=== PATIENT | male | born 1955 | race Caucasian/White ===

== ENCOUNTER 2021-12-06 10:51 | Inpatient (IN) | payer OTHER ==
[~2021-12-06] VITALS: Ht 165.1 cm; Wt 83.2 kg
[2021-12-06 11:18] LABS: BASOPHILS ABSOLUTE AUTO 0.03 K/mm3 (0.00-0.23); BASOPHILS PERCENT AUTO 0 % (0-2); EOSINOPHILS ABSOLUTE AUTO 0.03 K/mm3 (0.00-0.68); EOSINOPHILS PERCENT AUTO 0 % (0-6); Hematocrit 42.5 % (37.0-53.0); IMMATURE GRAN ABSOLUTE AUTO 0.04 K/mm3 (0.00-0.10); IMMATURE GRAN PERCENT AUTO 0 % (0-1); LYMPHOCYTES PERCENT AUTO 9 % (21-46); MONOCYTES ABSOLUTE AUTO 0.83 K/mm3 (0.16-1.47); MONOCYTES PERCENT AUTO 7 % (4-13); Mean Corpuscular HGB 33.5 pg (26.0-34.0); Mean Corpuscular HGB Conc 35.3 g/dL (31.5-36.5); Mean Corpuscular Volume 95 fL (80-100); Mean Platelet Volume 11.9 fL (9.1-12.4); NEUTROPHILS ABSOLUTE AUTO 9.74 K/mm3 (1.96-9.15); NEUTROPHILS PERCENT AUTO 83 % (41-73); Platelet Count 96 K/mm3 (150-400); RDW Coefficient Variation 13.9 % (11.7-14.2); RDW Standard Deviation 48.7 fL (35.1-46.3); Red Blood Cell Count 4.48 M/mm3 (4.30-5.90); White Blood Cell Count 11.77 K/mm3 (4.00-11.30)
[2021-12-06] MEDS ORDERED: AMLO5 PO (11:18)
[2021-12-06] MEDS ORDERED: MECL25 PO (11:18)
[2021-12-06] MEDS ORDERED: LOSA50 PO (11:18)
[2021-12-06 11:43] LABS: Alanine Aminotransfer (ALT/SGP 48 U/L (12-78); Albumin, Blood 3.5 g/dL (3.4-5.0); Alk Phos 69 U/L (50-136); Anion Gap 12 mmol/L (6-16); Aspartate Aminotrans (AST/SGOT 80 U/L (12-37); Bilirubin, Total 1.5 mg/dL (0.1-1.0); Blood Urea Nitrogen 25 mg/dL (8-24); Bun/Creatinine Ratio 30.5 (12.0-20.0); CO2, Blood 22 mmol/L (21-32); Calcium, Blood 8.6 mg/dL (8.5-10.1); Chloride, Blood 107 mmol/L (98-108); Creatinine, Blood 0.82 mg/dL (0.60-1.20); Globulin, Blood 3.4 g/dL (2.2-4.0); Glomerular Filtration Rate >60 (60-); Glucose, Blood 95 mg/dL (70-99); Potassium, Blood 2.6 mmol/L (3.5-5.5); Sodium, Blood 141 mmol/L (136-145); Total Protein, Blood 6.9 g/dL (6.4-8.2); Troponin I <0.015 ng/mL (0.000-0.040)
[2021-12-06 14:35] LABS: International Normalized Ratio 1.1; Prothrombin Time Results 11.5 Sec (9.7-11.5)
[2021-12-06 14:37] LABS: pH Blood Arterial 7.38 (7.35-7.45)
[2021-12-06 15:58] LABS: Thyroid Stimulating Hormone 0.66 uIU/mL (0.360-4.800)
--- NOTE | 2021-12-06 16:00 | NUR ---
Echocardiogram completed.
[2021-12-06 16:11] LABS: Creatine Kinase MB 5.4 ng/mL (0.0-3.6); Creatine Kinase MB Index 0.7 (0.0-4.0)
[2021-12-06 16:58] LABS: Source, Urine Foley catheter
--- NOTE | 2021-12-06 17:01 | NUR ---
ER ADMIT AT 1615: AGITATED VS SONOLENCE, PULLING AT LINES, AOX1 SELF BEST ASSESSMENT UNABLE TO ANSWER REST OF QUESTIONS D/T AGITATION, PUPILS 3MM BRISK, RESTRAINTS INITIATED D/T ATTEMPTING TO PULL LINES/CPAP, 2MG ATIVAN GIVEN FOR CIWA, LUNGS EXP WHEEZE LOWER BASES, ON CPAP SATS 92, BP HTN 150S, TACHYCARDIA 110S, CUETO PLACED, UA AND RESP PANEL SENT, WILL CONTINUE TO MONITOR.
[2021-12-06 17:05] LABS: Appearance, Urine Clear (Clear); Blood, Urine 3+ (Neg); Color, Urine Amber (P-Yellow); Glucose Qualitative, Urine Neg (Neg); Ketones, Urine 3+ (Neg); Leukocyte Esterase, Urine Neg (Neg); Nitrite, Urine Neg (Neg); Protein, Urine 2+ (Neg); Urobilinogen, Urine 2+ (Normal)
[2021-12-06 17:27] LABS: Bilirubin, Urine 1+ (Neg)
[2021-12-06 17:30] LABS: Bacteria Rare /hpf; Squamous Epithelial Cells Not Seen /hpf (Few); White Blood Cells, Urine Rare /hpf (0-5)
[2021-12-06 17:31] LABS: Hyaline Casts 0-2 /lpf (0-2)
[2021-12-06 17:36] LABS: U Amphetamine Screen DETECTED; U Barbituate Screen Not Detected; U Benzodiazapine Screen DETECTED; U Buprenorphine Screen Not Detected; U Cannabinoids Screen Not Detected; U Cocaine Screen Not Detected; U Methadone Screen Not Detected; U Methamphetamine Screen DETECTED; U Opiates Screen Not Detected; U Oxycodone Screen Not Detected; U Phencyclidine Screen Not Detected; U Propoxyphene Screen Not Detected
[2021-12-06 18:18] LABS: Adenovirus Not Detected (NOT DETECT); Bordetella pertussis Not Detected (NOT DETECT); Chlamydophila pneumoniae Not Detected (NOT DETECT); Coronavirus 229E Not Detected (NOT DETECT); Coronavirus HKU1 Not Detected (NOT DETECT); Coronavirus NL63 Not Detected (NOT DETECT); Coronavirus OC43 Not Detected (NOT DETECT); Human Metapneumovirus Not Detected (NOT DETECT); Human Rhinovirus/Enterovirus Not Detected (NOT DETECT); Influenza A/2009-H1 Not Detected (NOT DETECT); Influenza A/H1 Not Detected (NOT DETECT); Influenza A/H3 Not Detected (NOT DETECT); Influenza B Not Detected (NOT DETECT); Mycoplasma pneumoniae Not Detected (NOT DETECT); Parainfluenza Virus 1 Not Detected (NOT DETECT); Parainfluenza Virus 2 Not Detected (NOT DETECT); Parainfluenza Virus 3 Not Detected (NOT DETECT); Parainfluenza Virus 4 Not Detected (NOT DETECT); Respiratory Syncytial Virus Not Detected (NOT DETECT); SARS-Cov-2 (COVID-19), BioFire Not Detected (NOT DETECT)
--- NOTE | 2021-12-06 18:54 | NUR ---
AOX1 BEST ASSESSMENT OTHERWISE AGITATED/MOANS/PULLING AT LINES/PULLED OFF BIPAP, DEX UP TO 0.6, 8MG ATIVAN GIVEN FOR CIWA 15-19 FOR AGITATION/TREMORS/DISORIENTATION, FIO2 UP TO 75, TACHYCARDIA/HTN WITH AGITAITON, UA + FOR METH, ABDOMEN TENDER, CUETO ADEQUATE CYNTHIA OUTPUT, WILL REPORT TO NIGHT RN.
--- NOTE | 2021-12-06 19:39 | NUR ---
ASSUMED CARE PATIENT LYING IN BED W/ CPAP IN PLACE AND EYES CLOSED. CPAP W/ PRESSURE 14 AND FIO2 60%; SPO2 92%. PATIENT BELONGINGS IN BAG ON CHAIR IN ROOM. NO FAMILY AT BEDSIDE. PRECEDEX INF @ 0.6MCG/KG/HR W/ NS TKO INTO RT AC 20G IV; NS TKO INF TO LT WRIST 20G IV; AND KCL @ 20MEQ/HR W/ NS @ 20ML/HR CONCURRENT INF TO VITO PG. PATIENT DOES NOT WAKE TO STAFF ENTERING ROOM. TEMP CUETO PATENT AND DRAINING TO GRAVITY. REPORT COMPLETED W/ DAYSHIFT RN.
--- NOTE | 2021-12-06 22:04 | NUR ---
[place] RING RING TAKEN OFF OF LEFT RING FINGER, PLACED IN SPECIMEN CONTAINER W/ LABEL AND PUT WITH BELONGING BAGS IN ROOM.
[2021-12-07 03:49] LABS: BASOPHILS ABSOLUTE AUTO 0.01 K/mm3 (0.00-0.23); BASOPHILS PERCENT AUTO 0 % (0-2); EOSINOPHILS PERCENT AUTO 0 % (0-6); Hematocrit 39.7 % (37.0-53.0); IMMATURE GRAN ABSOLUTE AUTO 0.05 K/mm3 (0.00-0.10); IMMATURE GRAN PERCENT AUTO 1 % (0-1); LYMPHOCYTES ABSOLUTE AUTO 0.16 K/mm3 (0.84-5.20); LYMPHOCYTES PERCENT AUTO 2 % (21-46); MONOCYTES ABSOLUTE AUTO 0.51 K/mm3 (0.16-1.47); MONOCYTES PERCENT AUTO 5 % (4-13); Mean Corpuscular HGB 33.4 pg (26.0-34.0); Mean Corpuscular HGB Conc 35.3 g/dL (31.5-36.5); Mean Corpuscular Volume 95 fL (80-100); Mean Platelet Volume 11.4 fL (9.1-12.4); NEUTROPHILS ABSOLUTE AUTO 10.26 K/mm3 (1.96-9.15); NEUTROPHILS PERCENT AUTO 93 % (41-73); Platelet Count 93 K/mm3 (150-400); RDW Coefficient Variation 14.1 % (11.7-14.2); RDW Standard Deviation 49.1 fL (35.1-46.3); Red Blood Cell Count 4.19 M/mm3 (4.30-5.90); White Blood Cell Count 10.99 K/mm3 (4.00-11.30)
[2021-12-07 04:11] LABS: Alanine Aminotransfer (ALT/SGP 38 U/L (12-78); Albumin, Blood 2.7 g/dL (3.4-5.0); Albumin/Globulin Ratio 0.8 (0.8-1.8); Alk Phos 57 U/L (50-136); Anion Gap 5 mmol/L (6-16); Aspartate Aminotrans (AST/SGOT 44 U/L (12-37); Bilirubin, Total 0.9 mg/dL (0.1-1.0); Blood Urea Nitrogen 20 mg/dL (8-24); Bun/Creatinine Ratio 29.2 (12.0-20.0); CO2, Blood 24 mmol/L (21-32); CPK Creatine Kinase 304 U/L (39-308); Calcium, Blood 8.2 mg/dL (8.5-10.1); Chloride, Blood 112 mmol/L (98-108); Creatinine, Blood 0.68 mg/dL (0.60-1.20); Globulin, Blood 3.6 g/dL (2.2-4.0); Glomerular Filtration Rate >60 (60-); Glucose, Blood 216 mg/dL (70-99); Magnesium, Blood 2.6 mg/dL (1.6-2.4); Potassium, Blood 3.7 mmol/L (3.5-5.5); Sodium, Blood 141 mmol/L (136-145); Total Protein, Blood 6.3 g/dL (6.4-8.2)
--- NOTE | 2021-12-07 06:55 | NUR ---
SHIFT SUMMARY PATIENT REMAINED ON CPAP T/O NIGHT; PRESSURE 14 FIO2 65% WITH SPO2 GREATER THAN 92%. PATIENT BEGINNING TO FOLLOW COMMANDS AND OPEN EYES. CIWA MAX 15 AND REQUIRED A TOTAL OF 6 MG ATIVAN DURING SHIFT AND PRECEDEX INCREASED TO 0.7MCG/KG/HR. LUNG SOUNDS ARE COARSE T/O WITH DIMINISHED PERIODS AFTER REPOSITIONING. CUETO PATENT AND HAD 375ML OUT; NO BM THIS SHIFT. REPORT COMPLETED WITH DAYSJONATHON RN.
--- NOTE | 2021-12-07 09:03 | NUR ---
ASSUMED CARE OF PATIENT: AOX1 SOMNOLENT, FOLLOW COMMANDS, DEX TITRATED DOWN TO 0.5, CIWA 5, REMAINS CONFUSED, LUNGS COARSE ON 65% CPAP, BP WNL, SR/ST 80/90S, +2 PULSES, CUETO DRAINING CYNTHIA OUTPUT, WILL CONTINUE TO MONITOR.
[2021-12-07 12:54] LABS: Anti-Xa UFH, PHA Monitoring <0.10 IU/mL; International Normalized Ratio 0.99; Prothrombin Time Results 10.4 Sec (9.7-11.5)
--- NOTE | 2021-12-07 17:00 | NUR ---
AOX1 BEST ASSESSMENT, REMAINS CONFUSED, MORE RESPONSIVE AND FOLLOWING COMMANDS THIS SHIFT, ABLE TO TAKE OFF RESTRAINTS AT 1200, CIWA REMAINS <8, DEX DOWN TO 0.5, DENIES P/N/V, MINIMAL UOP CYNTHIA CONCENTRATED ROUGHLY 40ML/HR, ON CPAP DOWN TO 50FIO2, ATTEMPT AT HHFNC DESATS LOW 80S, LUNGS COARSE, AUDIBLE BOWELS, WILL CONTINUE TO MONITOR AND REPORT TO NIGHT RN.
--- NOTE | 2021-12-07 19:53 | NUR ---
SHIFT ASSESSMENT PT ALERT TO PERSON, TOWN, AND YEAR. FOLLOWING COMMANDS. ASSISTING WITH TURNS AND COMPLYING WITH ORAL CARE. CPAP IN PLACE @ 60% FIO2 c O2 SATS >90%. PRECEDEX GTT INFUSING @ 0.5MCG/KG/HR. CIWA <8. TEMP PROBE CUETO PATENT, PT AFEBRILE. RESTRAINTS REMAIN OFF. WILL CONTINUE TO MONITOR CLOSELY.
--- NOTE | 2021-12-07 21:49 | NUR ---
UPDATE SLOWLY TITRATING PRECEDEX DOWN. CURRENTLY PRECEDEX GTT @ 0.3MCG/KG/HR. PT ASSISTING MORE WITH TURNS AND ORAL CARE, FOLLOWING COMMANDS. SHORTLY AFTER THIS NURSE LEFT PTS ROOM HE BEGAN SOBBING. PT STATES HE WAS THINKING ABOUT/ DREAMING ABOUT HIS SIGNIFICANT OTHER. THIS NURSE OFFERED TO CALL HER BUT PT DOES NOT KNOW HER PHONE NUMBER. PT CONSOLED. MILD ETOH W/D SYMPTOMS PRESENT. CIWA OF 8. MEDICATED c 2MG ATIVAN. WILL CONTINUE TO MONITOR CLOSELY.
[2021-12-08 03:43] LABS: BASOPHILS ABSOLUTE AUTO 0.01 K/mm3 (0.00-0.23); BASOPHILS PERCENT AUTO 0 % (0-2); EOSINOPHILS PERCENT AUTO 0 % (0-6); Hematocrit 36.2 % (37.0-53.0); Hemoglobin 12.5 g/dL (13.5-17.5); IMMATURE GRAN ABSOLUTE AUTO 0.07 K/mm3 (0.00-0.10); IMMATURE GRAN PERCENT AUTO 1 % (0-1); LYMPHOCYTES ABSOLUTE AUTO 0.16 K/mm3 (0.84-5.20); LYMPHOCYTES PERCENT AUTO 2 % (21-46); MONOCYTES ABSOLUTE AUTO 0.89 K/mm3 (0.16-1.47); MONOCYTES PERCENT AUTO 8 % (4-13); Mean Corpuscular HGB 34.1 pg (26.0-34.0); Mean Corpuscular HGB Conc 34.5 g/dL (31.5-36.5); Mean Corpuscular Volume 99 fL (80-100); Mean Platelet Volume 12.2 fL (9.1-12.4); NEUTROPHILS PERCENT AUTO 90 % (41-73); Platelet Count 103 K/mm3 (150-400); RDW Coefficient Variation 14.6 % (11.7-14.2); RDW Standard Deviation 53.2 fL (35.1-46.3); Red Blood Cell Count 3.67 M/mm3 (4.30-5.90); White Blood Cell Count 11.03 K/mm3 (4.00-11.30)
--- NOTE | 2021-12-08 05:42 | NUR ---
SHIFT SUMMARY PT ALERT, FOLLOWING SIMPLE COMMANDS. REMAINS ON CPAP, NO CHANGES TO SETTINGS, O2 SATS >90%. TITRATED PRECEDEX OFF DURING THE NIGHT BUT PT BECAME VERY ANXIOUS THIS AM, PRECEDEX BACK ON @ 0.5MCG/KG/HR. PRN ATIVAN GIVEN WELL FOR CIWA SCORES >8. TEMP CUETO PATENT, DRAINING YELLOW URINE. REMAINS OUT OF RESTRAINTS. NO OTHER ACUTE CHANGES. WILL CONTINUE TO MONITOR.
--- NOTE | 2021-12-08 09:30 | NUR ---
ASSUMED CARE OF PATIENT: DEX 0.5, SOMNOLENT, SOME TREMORS, FOLLOWS COMMANDS, AOX4, CUETO DRAINING CYNTHIA CONCENTRATED OUTPUT, ABDOMEN FIRM AUDIBLE BOWELS, NSR/ST 90S, BP WNL, WILL CONTINUE TO MONITOR.
--- NOTE | 2021-12-08 09:31 | NUR ---
ASSUMED CARE OF PATIENT: PATIENT PRONED, UNRESPONSIVE ON NIMBEX/PROP, TOF 3/10 POWER LEVEL 2/4 TWITCH, NSR 60S, BP WNL, CUETO DRAINING ADEQUATE YELLOW OUTPUT, TOLERATING TF RESIDUAL 10MLS, LUNGS CLEAR/DIM SUBTLE COARSNESS IN BASES, ON 60% FIO2 VENTED, Q2 TURNS COORDINATED WITH RT AND STAFF, WILL CONTINUE TO MONITOR.
--- NOTE | 2021-12-08 17:46 | NUR ---
AOX4 AT BEST, INTERMITTANTLY CONFUSED AND SHORT TERM MEMORY NEEDS IMPROVEMENT, REQUIRES FREQUENT REDIRECTION WELL, ANXIOUS AT TIMES, PRECEDEX UP TO 0.9, NSR/ST 80-100S, +2 PULSES, BP WNL, LUNGS SIGNIFICANT COARSNESS WITH SOME WHEEZING AT TIMES, ATTEMPT ON HF ON BIPAP 60L/100% TOELRATED ONLY FOR 1.5 HOURS WITH INCREASED WOB REQUIRED BIPAP PLACEMENT, OTHERWISE 70% BIPAP, ABDOMEN FIRM AUDIBLE BOWELS, UOP ADEQUATE WITH 40MG LASIX, ABX SWITCHED TO VANCO/ZOSYN, WILL CONTINUE TO MONITOR AND REPORT TO NIGHT RN.
--- NOTE | 2021-12-08 19:10 | NUR ---
Assumed care. Report received by jaimee OWEN. Pt resting in bed, on bipap, 31/08, 70%. PT has IV access in R/ac, L/hand, PG in VITO. Precedex running at 0.9 mcg/kg/hr, NS 150 ml/hr, banana bag 100 ml/hr. Holman catheter in place. VS stable, no acute needs at this time. Will continue to monitor.
[2021-12-08 22:56] LABS: PCO2 Arterial 33.3 mmHg (35-45); PO2 Arterial 57.2 mmHg (80-100)
--- NOTE | 2021-12-09 01:58 | NUR ---
Summary of events. During shift pt became confused, agitated and restless with periods of desaturation during acute anxiety episodes. Dr. Paz called multiple times, Ativan PRN ordered Q2, Fentanl ordered q4, precedex increased to 1.4 mcg/kg/hr, all with no success in calming pt down. Dr Alford called at 2320 and decison made to intubate patient. Pt intubated at 2347, during intubation procedure 4mg versed given, 140mg propofol IVP given. 8.0 ETT placed, 24cm at the teeth. OG tube placed. ETT and OG placement verified by Dr Alford via XRAY. RT at bedside with Dr Alford during procedure. Vent settings: AC/VC 16/375/12.5/100%.
[2021-12-09 02:36] LABS: PCO2 Arterial 40.2 mmHg (35-45); PO2 Arterial 81.5 mmHg (80-100); pH Blood Arterial 7.32 (7.35-7.45)
[2021-12-09 04:06] LABS: BASOPHILS ABSOLUTE AUTO 0.01 K/mm3 (0.00-0.23); BASOPHILS PERCENT AUTO 0 % (0-2); EOSINOPHILS PERCENT AUTO 0 % (0-6); Hematocrit 35.8 % (37.0-53.0); Hemoglobin 12.1 g/dL (13.5-17.5); IMMATURE GRAN ABSOLUTE AUTO 0.15 K/mm3 (0.00-0.10); IMMATURE GRAN PERCENT AUTO 2 % (0-1); LYMPHOCYTES ABSOLUTE AUTO 0.24 K/mm3 (0.84-5.20); LYMPHOCYTES PERCENT AUTO 3 % (21-46); MONOCYTES ABSOLUTE AUTO 0.98 K/mm3 (0.16-1.47); MONOCYTES PERCENT AUTO 12 % (4-13); Mean Corpuscular HGB Conc 33.8 g/dL (31.5-36.5); Mean Corpuscular Volume 101 fL (80-100); Mean Platelet Volume 12.1 fL (9.1-12.4); NEUTROPHILS ABSOLUTE AUTO 7.09 K/mm3 (1.96-9.15); NEUTROPHILS PERCENT AUTO 84 % (41-73); Platelet Count 120 K/mm3 (150-400); RDW Standard Deviation 56.2 fL (35.1-46.3); Red Blood Cell Count 3.56 M/mm3 (4.30-5.90); White Blood Cell Count 8.47 K/mm3 (4.00-11.30)
[2021-12-09 04:19] LABS: Albumin, Blood 2.5 g/dL (3.4-5.0); Anion Gap 7 mmol/L (6-16); Blood Urea Nitrogen 18 mg/dL (8-24); Bun/Creatinine Ratio 23.6 (12.0-20.0); CO2, Blood 22 mmol/L (21-32); Calcium, Blood 7.8 mg/dL (8.5-10.1); Chloride, Blood 121 mmol/L (98-108); Creatinine, Blood 0.76 mg/dL (0.60-1.20); Glomerular Filtration Rate >60 (60-); Glucose, Blood 126 mg/dL (70-99); Phosphorus, Blood 2.4 mg/dL (2.5-4.9); Potassium, Blood 2.8 mmol/L (3.5-5.5); Sodium, Blood 150 mmol/L (136-145)
--- NOTE | 2021-12-09 07:23 | NUR ---
Shift summary. Pt intubated during shift, see events summary note. Vent settings AC/VC 18/375/12/100%. OG tube in place, to low intermittent suction. PG VITO, IV L/forearm, IV R/forearm. Pump settings: Propofol 60 mcg/kg/min, Precedex 0.8 mcg/kg/hr, versed 3 mg/hr, Dextrose 5%/water 50 ml/hr, Kphos 125 ml/hr, NS 10 ml/hr. SWB restraints in place. Holman catheter in place. VS stable, see shift summary/notes for further details. Report given to jaimee OWEN.
[2021-12-09] MEDS ORDERED: ALBU90OI INH (09:40)
--- NOTE | 2021-12-09 10:06 | NUR ---
ASSUMED CARE OF PT, REPORT RCV'D FROM LEXIE LE. PT INTUBATED AND SEDATED. VENT SETTINGS AC 16/375/12/100%. PROPOFOL @ 60 MCG/KG/MIN, PRECEDEX @0.8 MCG/KG/HR, VERSED @ 3 MG/HR. PT WITHDRAWS FROM PAINFUL STIMULATION, MOVES ALL EXTREMETIES, FAILS TO FOLLOW COMMANDS AT THIS TIME. ABDOMEN DISTENDED, TYMPANIC. OGT TO LIS, BILE OUTPUT. TEMP CUETO PATENT AND DRAINING CLOUDY, PURULENT URINE. VSS AT THIS TIME. SEE FULL SHIFT ASSESSMENT.
--- NOTE | 2021-12-09 11:00 | NUR ---
PT'S AYO REMI UPDATED WITH PT'S STATUS AND PLAN OF CARE.
[2021-12-09 12:41] LABS: Anion Gap 7 mmol/L (6-16); Blood Urea Nitrogen 18 mg/dL (8-24); Bun/Creatinine Ratio 24.5 (12.0-20.0); CO2, Blood 22 mmol/L (21-32); Calcium, Blood 7.9 mg/dL (8.5-10.1); Chloride, Blood 119 mmol/L (98-108); Creatinine, Blood 0.74 mg/dL (0.60-1.20); Glomerular Filtration Rate >60 (60-); Glucose, Blood 179 mg/dL (70-99); Sodium, Blood 148 mmol/L (136-145)
[2021-12-09 16:41] LABS: Vancomycin, Trough 18.2 ug/mL (5.0-10.0)
--- NOTE | 2021-12-09 18:38 | NUR ---
SHIFT SUMMARY PT REMAINS INTUBATED AND SEDATED, VENT SETTINGS AC 16/375/15/60%. PT REINTUBATED THIS EVENING D/T SIGNIFICANT CUFF LEAK. ETT 25 @ LIP. PT HAD MODERATE AMOUNT OF JÚNIOR RED BLOOD FROM ETT FOLLOWING REINTUBATION, PHYSICIAN AWARE. TUBE FEEDING STARTED, VITAL HIGH PROTEIN @ 10 ML/HR, ABDOMEN REMAINS SEVERELY DISTENDED, TYMPANIC WITH HYPOACTIVE BTS. 500 ML CLOUDY/PURULENT URINARY OUTPUT. PROPOFOL @ 60 MCG/KG/MIN, PRECEDEX @ 0.7 MCG/KG/HR. VERSED REMAINS OFF. VSS T/O SHIFT. WILL REPORT TO ONCOMING NURSE.
--- NOTE | 2021-12-09 19:15 | NUR ---
ASSUMPTION OF CARE RECEIVED REPORT FROM KOLBY OWEN. ASSUMED CARE OF PATIENT. PATIENT INTUBATED VENT WITH ETT 8.0, 25CM AT THE LIP. VENT SETTINGS AC/VC+ 16/375/50%/15, 02 SATS 95%. TF VIA OF OF VITAL HIGH PROTEIN AT 10ML/HR. PICC LINE TO LUE WITH PRECEDEX AT 0.7MCG/KG AND PROPOFOL AT 65MCG/KG INFUSING FOR SEDATION. CUETO PATENT AND DRAINING CLOUDY, YELLOW URINE. SCDS IN PLACE TO BLE. WILL REVIEW ORDERS AND TREAT PRESCRIBED.
[2021-12-10 04:21] LABS: BASOPHILS ABSOLUTE AUTO 0.01 K/mm3 (0.00-0.23); BASOPHILS PERCENT AUTO 0 % (0-2); EOSINOPHILS PERCENT AUTO 0 % (0-6); Hematocrit 36.5 % (37.0-53.0); Hemoglobin 12.3 g/dL (13.5-17.5); IMMATURE GRAN ABSOLUTE AUTO 0.27 K/mm3 (0.00-0.10); IMMATURE GRAN PERCENT AUTO 4 % (0-1); LYMPHOCYTES PERCENT AUTO 3 % (21-46); MONOCYTES ABSOLUTE AUTO 0.76 K/mm3 (0.16-1.47); MONOCYTES PERCENT AUTO 12 % (4-13); Mean Corpuscular HGB 33.8 pg (26.0-34.0); Mean Corpuscular HGB Conc 33.7 g/dL (31.5-36.5); Mean Corpuscular Volume 100 fL (80-100); Mean Platelet Volume 12.4 fL (9.1-12.4); NEUTROPHILS ABSOLUTE AUTO 5.35 K/mm3 (1.96-9.15); NEUTROPHILS PERCENT AUTO 81 % (41-73); Platelet Count 120 K/mm3 (150-400); RDW Coefficient Variation 15.4 % (11.7-14.2); RDW Standard Deviation 57.2 fL (35.1-46.3); Red Blood Cell Count 3.64 M/mm3 (4.30-5.90); White Blood Cell Count 6.59 K/mm3 (4.00-11.30)
[2021-12-10 04:39] LABS: Albumin, Blood 2.6 g/dL (3.4-5.0); Anion Gap 9 mmol/L (6-16); Blood Urea Nitrogen 22 mg/dL (8-24); Bun/Creatinine Ratio 24.9 (12.0-20.0); CO2, Blood 22 mmol/L (21-32); Calcium, Blood 8.5 mg/dL (8.5-10.1); Chloride, Blood 118 mmol/L (98-108); Creatinine, Blood 0.89 mg/dL (0.60-1.20); Glomerular Filtration Rate >60 (60-); Glucose, Blood 147 mg/dL (70-99); Magnesium, Blood 2.4 mg/dL (1.6-2.4); Phosphorus, Blood 2.6 mg/dL (2.5-4.9); Potassium, Blood 3.8 mmol/L (3.5-5.5); Sodium, Blood 149 mmol/L (136-145)
--- NOTE | 2021-12-10 06:01 | NUR ---
SHIFT SUMMARY PATIENT INTUBATED WITH VENT SETTINGS AC/VT+ 18/375/15/50%. SUCTIONING RED SECRETIONS VIA ETT TUBE AND ORALLY. PATIENT COUGHING AGAINST ETT, ALARMING VENT AND STACKING BREATHS. ADJUSTED PROPOFOL AND PRECEDEX FOR VENT TOLERANCE, ATIVAN PRN AND FENTANYL PRN GIVEN CHARTED FOR SEDATION ADJUNCT. HYPERTENSIVE INITIALLY, NOTIFIED DR. SUE AND RECEIVED PRN HYDRALAZINE ORDERS. GAVE ONE DOSE WITH OPTIMAL EFFECT. TF RAN AT GOAL OF 10ML/HR, ABD SEVERELY DISTENDED AND TYMPANIC. CUETO CATHETER REMAINED PATENT, DRAINING YELLOW URINE WITH SEDIMENT. PATIENT TURNED EVERY 2 HOURS FOR COMFORT. ORAL CARE PROVIDED CHARTED. LABS REVIEWED, CHEST XRAY COMPLETE. WILL CONTINUE TO MONITOR AND REPORT TO ONCOMING RN.
--- NOTE | 2021-12-10 07:09 | NUR ---
Received report from Shaina OWEN. Patient is intubate and sedated. He has 8.0 ET and is 25-26 at teeth with vent settings of AC/VC+ 16/375/50/15 and sats 96%. He has OG in place with VHP infusing at 10 ml/hr and 30ml water flushes Q4. He has 18ga IV RFA and is flushed and SL. He also has PICC line to VITO dressing intact and changed on Noc shift and is infusing Propofol at 60 mcg/kg/min, Precedex at 0.7 mcg/kg/hr and NS TKO x2. He has 16 fr Temp roche draining to gravity light zeke colored urine and temp 98.4. Bilateral SCD's to LE's and bilateral soft wrist restraints in place, checked skin and circulation and re-applied. Oral care done and repositioned.
--- NOTE | 2021-12-10 09:30 | NUR ---
Dr Alford and Dr Jones both by and no new orders. Addressed distended abdomen and they stated will continue to watch and no new imaging. Ventsettings /15 and sats 96%. Patient olerated meds well through OG and medicated for agitation per MAR for coughing and stacking breaths. Restraints remains in place as well as SCD's.
--- NOTE | 2021-12-10 11:30 | NUR ---
No significant changes with patient. No changes to vent settings or gtt's. VSS. Patient remains in restraints and SCD's. Significant other called and gave her status and updates. No new orders.
--- NOTE | 2021-12-10 13:30 | NUR ---
Continued no changes. Vent settings AC/VC+ 16/375/45/16 and sats 96%. Propofol 60 mcg/kg/min, Precedex 0.7 mcg/kg/hr, and NS TKO x2. Restraints bilateral wrist, circulation and skin checked. SCD's bilateral to LE's.
--- NOTE | 2021-12-10 15:30 | NUR ---
Current vent settings at AC/VC+ 16/375/35/15 and sats 95%. Propofol at 60 mcg/kg/min, Precedex 0.7 mcg/kg/hr, NS TKO x2. Restraints bilateral soft wrist and SCD's bilateral to LE's. No new orders.
--- NOTE | 2021-12-10 18:00 | NUR ---
Patient remains intubated and sedated. 8.0m ET and 25 cm at teeth with vent settiongs of AC/VC+ 16/375/35/15 and sats 95%. {Propofol at 60 mcg/kg/min, Precedex at 0.7 mcg/kg/hr, NS TKO x2. 16Fr roche draining to gravity 600ml dark zeke/green urine. Restraints remain in place bilateral soft wrist. SCD's bilateral LE's. Patient responds to painful stimuli. Have not had to medicate as he has been riding vent with out cough or stacking breath repeatedly.
--- NOTE | 2021-12-10 18:21 | NUR ---
Patient arrived via gurney and monitor. She was a three person slide transfer and hooked to monitor. She is alert to place self and birthdate. Operation Supervisor are equal and bilateral, pupils are 3 and equal and reactive. LE neuros are equal bilateral. Laceration occiptal three staple, site C/D/I. She has 20ga IV to RAC and is flushed and SL. She is resting currently. She is made PCU status and in need of Q2hr neuro checks. She stated she knew she fell and really did not want to, but does not really remember too much from fall.
--- NOTE | 2021-12-10 19:00 | NUR ---
ASSUMPTION OF CARE RECEIVED REPORT FROM KEN OWEN. ASSUMED CARE OF PATIENT. PATIENT INTUBATED WITH ETT 8.0 25 AT THE LIP. VENT SETTINGS AC/VC+ 16/375/35%15, 02 SATS 94%. TF INFUSING VIA OG AT 20ML/HR, GOAL RATE. SEDATED ON PRECEDEX OF 0.7MCG/KG, AND PROPOFOL 60MCG/KG. TOLERATING VENT WITH GAG, COUGH AND REACTIVE PUPILS. ABD REMAINS DISTENDED, FIRM, HYPOACTIVE BOWEL TONES. RECEIVED REPORT THAT TF INCREASED TO STIMULATE BOWELS AND IMPROVE ABD DISTENTION. WILL MONITOR FOR THIS EFFECT. CUETO CATHETER PATENT AND DRAINING CYNTHIA URINE WITH SEDIMENT NOTED. SCD'S TO BLE. WILL REVIEW ORDERS AND TREAT PRESCRIBED.
[2021-12-10 19:41] LABS: Vancomycin, Trough 17.4 ug/mL (5.0-10.0)
[2021-12-11 04:13] LABS: Hematocrit 37.3 % (37.0-53.0); Mean Corpuscular HGB 33.5 pg (26.0-34.0); Mean Corpuscular HGB Conc 32.2 g/dL (31.5-36.5); Mean Corpuscular Volume 104 fL (80-100); Mean Platelet Volume 12.1 fL (9.1-12.4); Platelet Count 125 K/mm3 (150-400); RDW Coefficient Variation 15.5 % (11.7-14.2); RDW Standard Deviation 60.4 fL (35.1-46.3); Red Blood Cell Count 3.58 M/mm3 (4.30-5.90)
[2021-12-11 04:31] LABS: Albumin, Blood 2.5 g/dL (3.4-5.0); Anion Gap 5 mmol/L (6-16); Blood Urea Nitrogen 28 mg/dL (8-24); Bun/Creatinine Ratio 28.5 (12.0-20.0); CO2, Blood 23 mmol/L (21-32); Calcium, Blood 8.2 mg/dL (8.5-10.1); Chloride, Blood 122 mmol/L (98-108); Creatinine, Blood 0.98 mg/dL (0.60-1.20); Glomerular Filtration Rate >60 (60-); Glucose, Blood 137 mg/dL (70-99); Magnesium, Blood 2.4 mg/dL (1.6-2.4); Phosphorus, Blood 2.9 mg/dL (2.5-4.9); Sodium, Blood 150 mmol/L (136-145)
[2021-12-11 04:36] LABS: BAND PERCENT MAN 3 % (0-8); BASOPHILS PERCENT MAN 0 % (0-2); EOSINOPHILS PERCENT MAN 0 % (0-6); LYMPHOCYTES ABSOLUTE MAN 0.37 K/mm3 (0.84-5.20); LYMPHOCYTES PERCENT MAN 5 % (21-46); METAMYELOCYTE ABSOLUTE MAN 0.07 K/mm3 (0.00-0.00); METAMYELOCYTE PERCENT MAN 1 % (0-0); MONOCYTES PERCENT MAN 12 % (4-13); MYELOCYTE ABSOLUTE MAN 0.15 K/mm3 (0.00-0.00); MYELOCYTE PERCENT MAN 2 % (0-0); SEG NEUTROPHILS PERCENT MAN 77 % (41-73); TOTAL CELLS COUNTED 100
--- NOTE | 2021-12-11 05:57 | NUR ---
SHIFT SUMMARY PATIENT REMAINED VENTILATED WITH FIO2 AT 35%, O2 SATS ABOVE 95%. TITRATED PEEP DOWN TO 12, TOLERATED WELL. CONTINUES TO MAINTAIN 02 SATS. SEDATION UNCHANGED, PATIENT RESPONDS TO PHYSICAL STIMULI. COUGHS COPIOUS BLOOD TINGED SECRETIONS VIA ETT REQUIRING FREQUENT SUCTIONING. TF INFUSING AT 10ML/HR INITIAL RESIDUAL OF 300ML REFED AT 2000, RECHECK AT 0400 OF 50ML REFED. ABD DISTENDED BUT BECOMING SOFTER. PATIENT FEBRILE THROUGH NIGHT WITH TEMP OF 99-100. I/O'S AND CXR COMPLETED, LABS REVIEWED. WILL CONTINUE TO MONITOR AND REPORT TO ONCOMING RN.
--- NOTE | 2021-12-11 08:15 | NUR ---
ASSUMED CARE: REPORT RECEIVED FROM JOHN Graham RN. ASSUMED CARE OF THIS PT AT APPROX 0700. ON ASSESSMENT, THE PT IS RESTING QUIETLY, SEDATED W/ PROPOFOL AT 60 MCG/KG/MIN & PRECEDEX AT 0.7 MCG/KG/HR. PT GRIMACES TO PAINFUL STIMULUS. LS ARE COARSE, DIM IN BASES. VENT SETTINGS: AC/VC 16/375/12/30% W/ O2 SATS > 92%. SMALL TO MOD AMNTS OF THICK STOKES/ BLOOD-TINGED SPUTUM SUCTIONED THROUGH ETT. MONITOR SHOWS SR W/ HR 80-90s, HTN W/ INCREASED STIMULUS/ AGITATION. OGT IN PLACE W/ VHP INFUSING AT 10 ML/HR, H2O FLUSH INCREASED TO 100 ML Q4H PER ORDERS R/T ELEVATED SODIUM LEVEL ON LABS. TEMP CUETO PATENT/ DRAINING DARK YELLOW URINE. SKIN CONDITION OVERALL INTACT, DIRTY. Q2H REPOSITIONING TO MAINTAIN SKIN INTEGRITY. WILL CONTINUE TO MONITOR & UPDATE NEEDED.
--- NOTE | 2021-12-11 10:25 | NUR ---
DR MILLAN / SEDATION VACATION: PROVIDER AT BEDSIDE TO EVAL PT THIS AM. HE WOULD LIKE SEDATION VACATION TO BE COMPLETED THIS AM. PROPOFOL PLACED ON STANDBY AT APPROX 0940. THIS RN HAS NOTIFIED PROVIDER OF PT's INCREASED POTASSIUM LEVEL FROM 3.8 TO 5.0 ON AM BLOOD WORK W/ KCL REPLETION ORDERED BID PER OGT. HE STS THE ORDER FOR KCL WILL BE D/C'd & LABS WILL BE RECHECKED IN AM. PROPOFOL REMAINS OFF & PT IS NOW MORE AWAKE W/ EYES OPEN. HE HAS A SLIGHTLY UPWARD GAZE, DOES NOT BLINK WHEN THIS RN's HAND IS BROUGHT TOWARD HIS EYES. TURNS HEAD [id number] SPONTANEOUSLY, IS NOT PURPOSEFULLY RESPONDING TO VERBAL DIRECTIONS IN ANY WAY. THE PT IS BECOMING INCREASINGLY AGITATED & HYPERTENSIVE, SBP 180s. DR MILLAN BACK TO BEDSIDE & HAS EVALUATED THE PT. HE STS TO RESUME SEDATION NEEDED, HAS DECREASED PT's PEEP TO 8.0, NO OTHER CHANGES AT THIS TIME.
[2021-12-11 14:47] LABS: Anion Gap 7 mmol/L (6-16); Blood Urea Nitrogen 29 mg/dL (8-24); Bun/Creatinine Ratio 33.6 (12.0-20.0); CO2, Blood 22 mmol/L (21-32); Calcium, Blood 8.2 mg/dL (8.5-10.1); Chloride, Blood 120 mmol/L (98-108); Creatinine, Blood 0.86 mg/dL (0.60-1.20); Glomerular Filtration Rate >60 (60-); Glucose, Blood 125 mg/dL (70-99); Potassium, Blood 4.4 mmol/L (3.5-5.5); Sodium, Blood 149 mmol/L (136-145)
--- NOTE | 2021-12-11 17:12 | NUR ---
SHIFT SUMMARY: NO ACUTE CHANGES SINCE PRIOR UPDATES. PT REMAINS SEDATED W/ PROPOFOL & PRECEDEX. GRIMACES TO PAINFUL STIMULUS. LS ARE COARSE T/O, DIM IN BASES. VENT SETTINGS: AC/VC 16/375/8/30% W/ O2 SATS > 92%. PRODUCTIVE COUGH W/ SMALL AMNTS THICK STOKES/ BLOOD-TINGED SPUTUM NOTED. MONITOR SHOWS SR W/ HR 90s, HTN W/ INCREASED STIMULUS. OGT IN PLACE W/ TUBE FEEDS INFUSING AT GOAL RATE, MODERATE RESIDUALS - SEE I&O. NO BM THIS SHIFT, ABD REMAINS FIRM & DISTENDED. TEMP CUETO PATENT/ DRAINING DARK YELLOW-GREEN URINE W/ SMALL AMNT SEDIMENT NOTED. SKIN CONDITION OVERALL INTACT W/ Q2H REPOSITIONING TO MAINTAIN SKIN INTEGRITY. WILL CONTINUE TO MONITOR & REPORT OFF TO ONCOMING RN.
--- NOTE | 2021-12-11 19:20 | NUR ---
ASSUMPTION OF CARE RECEIVED REPORT FROM ROSARIO OWEN, ASSUMED CARE OF PATIENT. PATIENT SEDATED AND VENTILATED ETT 8.0, 25CM AT THE LIP. VENT SETTINGS AC/VC+ 16/375/30%/8, 02 SATS OF 93%. SEDATION OF PRECEDEX AT 0.7MCG/KG, PROPOFOL OF 60MCG/KG. PATIENT WITH NOTED BREATH STACKING, STRONG COUGH AND GAG. RESPONDS TO PHYSICAL STIMULI, NO PURPOSEFUL MOVEMENTS NOTED AT THIS TIME. TF TO OG AT 10ML/HR WITH H20 FLUSH OF 100ML/4HOURS. CUETO PATENT AND DRAINING YELLOW URINE WITH SEDIMENT. VITALS CURRENTLY STABLE. WILL REVIEW ORDERS AND TREAT PRESCRIBED.
[2021-12-12 04:09] LABS: Hematocrit 37.9 % (37.0-53.0); Hemoglobin 12.3 g/dL (13.5-17.5); Mean Corpuscular HGB 33.6 pg (26.0-34.0); Mean Corpuscular HGB Conc 32.5 g/dL (31.5-36.5); Mean Corpuscular Volume 104 fL (80-100); Mean Platelet Volume 12.6 fL (9.1-12.4); Platelet Count 125 K/mm3 (150-400); RDW Coefficient Variation 15.1 % (11.7-14.2); RDW Standard Deviation 58.4 fL (35.1-46.3); Red Blood Cell Count 3.66 M/mm3 (4.30-5.90); White Blood Cell Count 8.98 K/mm3 (4.00-11.30)
[2021-12-12 04:40] LABS: Anion Gap 5 mmol/L (6-16); Blood Urea Nitrogen 29 mg/dL (8-24); Bun/Creatinine Ratio 36.2 (12.0-20.0); CO2, Blood 23 mmol/L (21-32); Calcium, Blood 8.5 mg/dL (8.5-10.1); Chloride, Blood 118 mmol/L (98-108); Glomerular Filtration Rate >60 (60-); Glucose, Blood 147 mg/dL (70-99); Magnesium, Blood 2.6 mg/dL (1.6-2.4); Phosphorus, Blood 3.9 mg/dL (2.5-4.9); Potassium, Blood 4.5 mmol/L (3.5-5.5); Sodium, Blood 146 mmol/L (136-145)
[2021-12-12 04:41] LABS: BAND PERCENT MAN 1 % (0-8); BASOPHILS PERCENT MAN 0 % (0-2); EOSINOPHILS PERCENT MAN 0 % (0-6); LYMPHOCYTES ABSOLUTE MAN 0.35 K/mm3 (0.84-5.20); LYMPHOCYTES PERCENT MAN 4 % (21-46); MONOCYTES ABSOLUTE MAN 0.62 K/mm3 (0.16-1.47); MONOCYTES PERCENT MAN 7 % (4-13); MYELOCYTE ABSOLUTE MAN 0.26 K/mm3 (0.00-0.00); MYELOCYTE PERCENT MAN 3 % (0-0); NEUTROPHILS ABSOLUTE MAN 7.72 K/mm3 (1.96-9.15); SEG NEUTROPHILS PERCENT MAN 85 % (41-73); TOTAL CELLS COUNTED 100
--- NOTE | 2021-12-12 06:02 | NUR ---
SHIFT SUMMARY NO ACUTE CHANGES. VENT SETTINGS UNCHANGED. PROPOFOL DECREASED TO 55MCG/KG. PATIENT RESPONDS TO NAME BY OPENING EYES. ABD REMAINS DISTENDED, MOM GIVEN FOR BOWEL CARE. LABS REVIEWED. WILL REPORT TO ONCOMING RN.
--- NOTE | 2021-12-12 07:37 | NUR ---
Received report from Shaina OWEN. Patient is intubated and sedated. He has 8.0 ET and 25 at gums with vent settings AC/VC+ 16/375/30/8 and sats 100%. He has PICC line to VITO and is infusing Propof at 55 mcg/kg/min, Precedex 0.7 mcg/kg/hr, NS TKO x2. He has OG in plcae and is infusing VHP at 10 ml/hr and 100 ml q4 water flushes. He has 16Fr temp roche draining to gravity light green/yellow urine and temp of 98.6. Withdrawls to oral care and positioning. SCD's bilaterally to LE's and bilateral soft wrist restraints, skin and circulation check and re-applied restraints.
--- NOTE | 2021-12-12 09:30 | NUR ---
No significant changes to patient. Continue on same vent and gtt settings. AM meds tolerated well. Open eyes with am care. He remains in restraints bilateral soft wrist and bilateral SCD's. Dr both been by and no new orders.
--- NOTE | 2021-12-12 11:30 | NUR ---
Dr Coelho ordered for PEEP reduced to 5 and now current settings of 16/375/35/5 and sats 95%. No changes to gtt's. Restraints remains in place for patient safety and line/tube safety. SCD's remain in place bilaterally to LE's. Repositioned and oral care.
--- NOTE | 2021-12-12 14:33 | NUR ---
No further vent changes or gtt changes. Gave significant other update. Remains in bilateral soft wrist restraints, checked skin and circulation.
--- NOTE | 2021-12-12 15:30 | NUR ---
Patient placed on transport monitor in preperation for new monitors and frequent watching until changed. No vent or gtt settings.
--- NOTE | 2021-12-12 18:16 | NUR ---
Patient remains intubated and sedated. He has 8.0 ET, 25 cm at gums with vent settings AC/VC+ 16/375/35/5 and leelee 96%. He has PICC line infusing Propofol at 45 mcg/kg/min, Precedex at 0.4 mcg/kg/hr, NS TKO x2. He has 16 Fr temp roche draining to gravity 1300 clear green/yellow urine and temp 99.3. He remains in bilateral soft wrist restraints. He has bilateral SCD's to LE's. He opens eys to nocious stimuli.
--- NOTE | 2021-12-12 19:06 | NUR ---
ASSUMPTION OF CARE RECEIVED REPORT FROM KEN OWEN, ASSUMED CARE OF PATIENT. PATIENT VENTILATED WITH PEEP OF 5 AND FIO2 OF 35%. 02 SATS 95%. VITALS STABLE. TF AT GOAL OF 10ML/HR VIA OG. CUETO PATENT AND DRAINING CLEAR, YELLOW URINE. PROPOFOL AT 45MCG/KG AND PRECEDEX AT 0.4MCG/KG. PATIENT OPENING EYES, NOT FOLLOWING COMMANDS AT THIS TIME. WILL REVIEW ORDERS AND TREAT PRESCRIBED.
[2021-12-13 04:46] LABS: Hematocrit 37.8 % (37.0-53.0); Hemoglobin 12.3 g/dL (13.5-17.5); Mean Corpuscular HGB 33.4 pg (26.0-34.0); Mean Corpuscular HGB Conc 32.5 g/dL (31.5-36.5); Mean Corpuscular Volume 103 fL (80-100); Mean Platelet Volume 12.7 fL (9.1-12.4); Platelet Count 131 K/mm3 (150-400); RDW Coefficient Variation 14.6 % (11.7-14.2); RDW Standard Deviation 55.3 fL (35.1-46.3); Red Blood Cell Count 3.68 M/mm3 (4.30-5.90); White Blood Cell Count 10.27 K/mm3 (4.00-11.30)
[2021-12-13 05:19] LABS: Alanine Aminotransfer (ALT/SGP 126 U/L (12-78); Albumin, Blood 2.4 g/dL (3.4-5.0); Albumin/Globulin Ratio 0.8 (0.8-1.8); Alk Phos 67 U/L (50-136); Anion Gap 4 mmol/L (6-16); Aspartate Aminotrans (AST/SGOT 58 U/L (12-37); Bilirubin, Total 0.7 mg/dL (0.1-1.0); Blood Urea Nitrogen 30 mg/dL (8-24); Bun/Creatinine Ratio 38.9 (12.0-20.0); CO2, Blood 26 mmol/L (21-32); Calcium, Blood 8.5 mg/dL (8.5-10.1); Chloride, Blood 114 mmol/L (98-108); Creatinine, Blood 0.77 mg/dL (0.60-1.20); Globulin, Blood 3.2 g/dL (2.2-4.0); Glomerular Filtration Rate >60 (60-); Glucose, Blood 123 mg/dL (70-99); Potassium, Blood 4.1 mmol/L (3.5-5.5); Sodium, Blood 144 mmol/L (136-145); Total Protein, Blood 5.6 g/dL (6.4-8.2)
[2021-12-13 06:03] LABS: BAND PERCENT MAN 4 % (0-8); BASOPHILS PERCENT MAN 0 % (0-2); EOSINOPHILS PERCENT MAN 0 % (0-6); METAMYELOCYTE PERCENT MAN 1 % (0-0); MONOCYTES ABSOLUTE MAN 0.41 K/mm3 (0.16-1.47); MONOCYTES PERCENT MAN 4 % (4-13); MYELOCYTE PERCENT MAN 2 % (0-0); NEUTROPHILS ABSOLUTE MAN 9.55 K/mm3 (1.96-9.15); SEG NEUTROPHILS PERCENT MAN 89 % (41-73); TOTAL CELLS COUNTED 100
--- NOTE | 2021-12-13 06:10 | NUR ---
SHIFT SUMMARY NO ACUTE CHANGES FROM START OF SHIFT. VENT SETTINGS UNCHANGED WITH PEEP AT 5 AND FIO2 35%. COPIOUS AMOUNTS OF SECRETIONS SUCTIONED VIA ETT AND ORALLY. SEDATION DECREASED TO PROPOFOL OF 40MCG/KG, PRECEDEX CONTINUES AT 0.4MCG/KG. TF REMAIN AT GOAL, BOWEL CARE INIATED AND PATIENT HAD TWO BOWEL MOVEMENTS. CUETO PATENT AND DRAINING CLEAR, GREEN URINE WITH ADEQUATE OUTPUT. PATIENT WAKING UP, FOLLOWING COMMANDS, MINIMAL ANXIETY NOTED. ATIVAN GIVEN ONCE WHEN PROPOFOL DECREASED. WILL CONTINUE TO MONITOR AND REPORT TO ONCOMING RN.
--- NOTE | 2021-12-13 06:58 | NUR ---
Received report from Shaina OWEN. Patient is intubated and sedated with 8.0 ET and is 25 at gums with vent settings of AC/VC+ 16 375/35/5 and sats 96%. He awakens to verbal stimuli and opens eyes and tracks slightly. He has 18ga IV RFA flushed and SL'd. He has PICC line to VITO taveras intact and site WNL's and is infuisng Propofol at 40 mcg/kg/min, Precedex at 0.4 mcg/kg/hr and NS TKO x2. He has OG in place and is infusing VHP at 10 ml/hr and 100 ml/hr water flushes Q4. He has 16 Fr Holman draining to gravity green/yellow clear urine. He has bilateral SCD'd to LE's. He has bilateral soft wrist restraints, skin and circulation checked and restraints re-applied. He started having stool last night and none yet this am.
--- NOTE | 2021-12-13 09:35 | NUR ---
Patient had large liquid dark stool. Cleaned patient up and changed linen. AM meds given through OG and IV. No changes to vent or gtts since am note. He remaisn in bilateral soft wrist restraints and SCD's bilaterally to LE's.
--- NOTE | 2021-12-13 11:29 | NUR ---
Patient had another med liquid dark stool and placed rectal tube and is draining well. He was placed on PS 8 and Spon. Mode FiO2 35% and PEEP 5 with sats 96%. He had full bed bathe and full linen change. Propofol reduced to 25 mcg/kg/min and Precedex remains at 0.4 mcg/kg/hr and NS TKO x2. He is more alert with open is and only still tracks minimally. 850 ml urine emptied from roche.
--- NOTE | 2021-12-13 13:35 | NUR ---
Propofol has been on standby since 1200, and he remains on Spon. PS 8 FiO2 35% PEEP 5 and sats 95%. He awakens a little bit more and was able to follow very simple commands like squeeze my hand and turns head to loud verbal stimuli. VSS, RR<25. He remains in bilateral soft wrist restraints and bilateral SCD's to LE's. Rectal tune in place.
--- NOTE | 2021-12-13 16:21 | NUR ---
Patient started to get anxious and had to restart Propofol at 40 mcg/kg/min and Precedx at 0.4 mcg/kg/hr and NS TKO x2. Rectal tube draining dark liquid stool well. Holman draining to gravity green/yellow urine. Patient remains arouseable to verbal stimuli and follow weakly simple commands.
--- NOTE | 2021-12-13 18:18 | NUR ---
Patient remains sedated intubated with 8.0 ET and 25 cm at gums with vent settings of PS8/5 FiO2 35% and sats 94%. His VITO PICC infusing Propofol at 40 mcg/kg/min, Precedex at 0.4 mcg/kg/hr and NS TKO x2. He remains in bilateral soft wrist restraints and SCD's bilateral LE's. His rectal tube has good flow dark liquid stool . He remains awake and continues to folloow minimal commands.
--- NOTE | 2021-12-13 19:23 | NUR ---
ASSESSMENT/ASSUMED CARE PT INTUBATED AND ON [facility] V[facility]. VENT SETTINGS SPON PEEP 5 FIO2 35%. PT OPENS EYES TO VERBAL STIMULI, BUT WILL NOT FOLLOW INSTRUCTIONS. LUNGS COARSE AND DECREASED IN THE BASES. SUCTIONED LARGE AMT CREAM COLORED SECRECTIONS VIA ET TUBE WITH IMPROVED LUNGS SOUNDS AFTER. HEART RATE REGULAR, BP STABLE. BT+HYPOACTIVE. OG WITH TUBE FEED VITAL HP 1.0 LAURITA AT GOAL RATE 20 ML/HR WITH WATER 100ML Q4HR. RESIDUAL 10 ML REFED. RECTAL TUBE REPOSITIONED, DRAINING GREEN/BROWN LIQUID STOOL. IV PICC LINE TO LEFT UPPER ARM WITH PROPOFOL AT 40 MCQ/KG/MIN, PRECEDEX 0.4 MCQ/KG/HR AND NS AT 10 ML/HR X 2 FOR ANTIBIOTICS. PIV TO RIGHT FOREARM SALINE LOCKED, AND LEFT WRIST SALINE LOCKED. CUETO CATH PATENT DRAINING YELLOW URINE. BILAT SOFT WRIST RESTRAINTS ON. PT REPOSITIONE AND ORAL CARE DONE.
--- NOTE | 2021-12-13 21:20 | NUR ---
VENT DR MILLAN HERE, PT PLACED BACK ON VENT SETTINGS AC/VC+ 16/375/5/35%. SUCTIONED LARGE AMT THIN CREAM COLORED SECRECTIONS VIA ET TUBE. PT MED WITH ATIVAN 2MG.
[2021-12-14 04:49] LABS: Alanine Aminotransfer (ALT/SGP 114 U/L (12-78); Albumin, Blood 2.2 g/dL (3.4-5.0); Albumin/Globulin Ratio 0.8 (0.8-1.8); Alk Phos 59 U/L (50-136); Anion Gap 4 mmol/L (6-16); Aspartate Aminotrans (AST/SGOT 41 U/L (12-37); Bilirubin, Total 0.4 mg/dL (0.1-1.0); Blood Urea Nitrogen 27 mg/dL (8-24); Bun/Creatinine Ratio 35.2 (12.0-20.0); CO2, Blood 28 mmol/L (21-32); Calcium, Blood 7.9 mg/dL (8.5-10.1); Chloride, Blood 112 mmol/L (98-108); Creatinine, Blood 0.77 mg/dL (0.60-1.20); Globulin, Blood 2.9 g/dL (2.2-4.0); Glomerular Filtration Rate >60 (60-); Glucose, Blood 105 mg/dL (70-99); Magnesium, Blood 2.5 mg/dL (1.6-2.4); Phosphorus, Blood 4.5 mg/dL (2.5-4.9); Sodium, Blood 144 mmol/L (136-145); Total Protein, Blood 5.1 g/dL (6.4-8.2)
[2021-12-14 04:52] LABS: BASOPHILS ABSOLUTE AUTO 0.03 K/mm3 (0.00-0.23); BASOPHILS PERCENT AUTO 0 % (0-2); EOSINOPHILS ABSOLUTE AUTO 0.02 K/mm3 (0.00-0.68); EOSINOPHILS PERCENT AUTO 0 % (0-6); Hematocrit 35.1 % (37.0-53.0); Hemoglobin 11.4 g/dL (13.5-17.5); IMMATURE GRAN PERCENT AUTO 5 % (0-1); LYMPHOCYTES ABSOLUTE AUTO 0.69 K/mm3 (0.84-5.20); LYMPHOCYTES PERCENT AUTO 7 % (21-46); MONOCYTES ABSOLUTE AUTO 0.78 K/mm3 (0.16-1.47); MONOCYTES PERCENT AUTO 8 % (4-13); Mean Corpuscular HGB 33.3 pg (26.0-34.0); Mean Corpuscular HGB Conc 32.5 g/dL (31.5-36.5); Mean Corpuscular Volume 103 fL (80-100); Mean Platelet Volume 12.8 fL (9.1-12.4); NEUTROPHILS ABSOLUTE AUTO 7.51 K/mm3 (1.96-9.15); NEUTROPHILS PERCENT AUTO 79 % (41-73); Platelet Count 123 K/mm3 (150-400); RDW Coefficient Variation 14.1 % (11.7-14.2); RDW Standard Deviation 53.1 fL (35.1-46.3); Red Blood Cell Count 3.42 M/mm3 (4.30-5.90); White Blood Cell Count 9.53 K/mm3 (4.00-11.30)
--- NOTE | 2021-12-14 06:18 | NUR ---
SHIFT SUMMARY PT CONT INTUBATED AND ON MECH VENT. PT PLACED BACK ON AC/VC+ 16/375/5/35% FROM SPONT. LUNGS COARSE WITH LARGE AMT CREAM COLORED DRAINAGE VIA ET TUBE. HEART RATE REGULAR, BP STABLE. PT TURNED Q2HR. MED WITH ATIVAN TWICE DURING THE NIGHT. PROPOFOL INCREASED TO 50 MCQ/KG/MIN FOR SEDATION WHEN VENT SETTINGS CHANGED. BILAT SOFT WRIST RESTRAINTS ON. TUBE FEED AT GOAL. REPORT TO ON COMING NURSE
--- NOTE | 2021-12-14 07:30 | NUR ---
ASSUMED CARE REPORT FROM REMI OWEN AT 0700. PT INTUBATED AND SEDATED. VENT SETTINGS AC/VC+16/375/0.8/5/35%. LUNGS COARSE THROUGHOUT. LARGE THICK YELLOW SECRETIONS VIA ETT. COUGH/GAG/SWALLOW REFLEX. PROPOFOL AND PRECEDEX GTT FOR SEDATION. OPENS EYES TO VERBAL STIMULI. DOES NOT FOLLOW COMMANDS. JANINE. SR, RATE 90'S. BP STABLE. ABD FIRM, DISTENDED. TUBE FEEDS AT GOAL, 20 ML/HR c 100 ML FLUSH q4 HR, MINIMAL RESIDUALS. RECTAL TUBE IN PLACE, LIQUID BROWN STOOL OUT. BT X4. CUETO PATENT, DRAINING CLEAR YELLOW URINE TO GRAVITY. WILL CONTINUE TO MONITOR.
--- NOTE | 2021-12-14 11:12 | NUR ---
SEDATION VACATION PROPOFOL PLACED ON STANDBY, VENT SETTINGS CHANGED TO SPONT 7/5/35%. PT TOLERATED WELL. OCCASIONALLY MOVING HEAD SIDE TO SIDE. CONTINUES TO HAVE LARGE AMOUNT OF SECRETIONS. SQUEEZED RIGHT HAND ON COMMAND, DOES NOT FOLLOW ANY OTHER DIRECTIONS. PRECEDEX PLACED ON STANDBY, RESTARTED PROPOFOL.
--- NOTE | 2021-12-14 17:27 | NUR ---
SHIFT SUMMARY PT REMAINS INTUBATED AND SEDATED. VENT SETTINGS AC/VC+16/375/0.8/5/35%. PT ON SPONT FOR APPROX TWO HOURS THIS SHIFT. PRECEDEX TITRATED OFF THIS SHIFT. PROPOFOL AT 55 MCG/KG/MIN. PT OPENS EYES SPONT, SHAKES HEAD. DOES NOT FOLLOW DIRECTIONS. GRIMACES c CARE. MOVES UPPER EXT. LUNGS COARSE c EXP WHEEZES. CONTINUES TO HAVE MODERATE THICK YELLOW SECRETIONS VIA ETT. COPIOUS ORAL SECRETIONS. SR ON MONITOR, RATE 90'S. BP STABLE. TUBE FEEDS CONTINUE AT GOAL c MINIMAL RESIDUALS. ABD FIRM. RECTAL TUBE IN PLACE, 100 ML BROWN LIQUID STOOL OUT. CUETO PATENT, 1450 ML CLEAR YELLOW URINE OUT. WILL CONTINUE TO MONITOR UNTIL REPORT TO ONCOMING NURSE.
--- NOTE | 2021-12-14 19:36 | NUR ---
ASSESSMENT/ASSUMED CARE PT INTUBATED AND ON [facility] VENT. PT AWAKE, MOVING HEAD SIDE TO SIDE. NOT FOLLOWING INSTRUCTIONS. RESP RATE IN THE HIGH 20'S. LUNGS COARSE. SUCTIONED LARGE AMT THIN CREAM SECRECTIONS VIA ET TUBE. LARGE AMT OF ORAL SECRECTIONS SUCTIONED. LUNGS SOUNDS IMPROVED AFTER SUCTIONING NOW ABLE TO HEAR WHEEZES. VENT SETTINGS AC/VC+ 16/375/5/35%. HEART RATE REGULAR, BP STABLE. BT+TYMPANIC. ABD ROUND AND FIRM. OG WITH TUBE FEED VITAL HP 1.0 LAURITA AT GOAL RATE 20 ML/HR, WATER 100 ML Q4HR. RESIDUAL 10ML REFED. CUETO CATH PATENT DRAINING YELLOW URINE. RECTAL TUBE REPOSITIONED, DRAINING GREEN/BROWN LIQUID STOOL. ORAL CARE DONE AND PT REPOSITIONED. PICC LINE TO LEFT UPPER ARM, DRSG INTACT. SITE CLEAR. PROPOFOL AT 55 MCQ/KG/MIN. NS AT 10 ML/HR X2. BILAT SOFT WRIST RESTRAINTS ON.
--- NOTE | 2021-12-14 20:45 | NUR ---
TEMP TEMP UP TO 100.1. BLANKETS OFF, FAN ON PT, AND ICE PACKS APPLIED TO BEHIND NECK, UNDER ARMS, AND TO GROIN.
--- NOTE | 2021-12-14 21:12 | NUR ---
REPORT GIVEN TO JOHN RAYMOND RN
--- NOTE | 2021-12-15 00:34 | NUR ---
ASSUMED CARE AT 2109 PT LAYING IN BED INTUBATED WITH VENT SETTINGS AC/VC 16/370/5/35%; LARGE AMOUNT OF ETT AND ORAL SECREATIONS. PT OPENS EYES SPONTANIOUSLY AND TO VERBAL STIMULI BUT DOES NOT FOLLOW DIRECTIONS OR TRACKS; PROPOFOL INFUSING AT 55MCG/KG/MIN. TEMP 100.4, ICE PACKS AND FAN ON PT. HR 100-110. SBP 130-150'S. VHP INFUISNG VIA OG AT 20ML/HR (GOAL) WITH 100ML WATER FLUSHES Q4HR; MINIMAL RESIDUALS. RECTAL TUBE AND CUETO IN PLACE AND DRAINING TO GRAVITY. SEE SHIFT ASSESSMENT FOR FULL ASSESSMENT.
[2021-12-15 04:23] LABS: BASOPHILS ABSOLUTE AUTO 0.04 K/mm3 (0.00-0.23); BASOPHILS PERCENT AUTO 0 % (0-2); EOSINOPHILS ABSOLUTE AUTO 0.04 K/mm3 (0.00-0.68); EOSINOPHILS PERCENT AUTO 0 % (0-6); Hematocrit 38.1 % (37.0-53.0); Hemoglobin 12.6 g/dL (13.5-17.5); IMMATURE GRAN PERCENT AUTO 5 % (0-1); LYMPHOCYTES ABSOLUTE AUTO 0.72 K/mm3 (0.84-5.20); LYMPHOCYTES PERCENT AUTO 6 % (21-46); MONOCYTES ABSOLUTE AUTO 0.93 K/mm3 (0.16-1.47); MONOCYTES PERCENT AUTO 8 % (4-13); Mean Corpuscular HGB 33.6 pg (26.0-34.0); Mean Corpuscular HGB Conc 33.1 g/dL (31.5-36.5); Mean Corpuscular Volume 102 fL (80-100); Mean Platelet Volume 12.5 fL (9.1-12.4); NEUTROPHILS ABSOLUTE AUTO 10.09 K/mm3 (1.96-9.15); NEUTROPHILS PERCENT AUTO 81 % (41-73); Platelet Count 130 K/mm3 (150-400); RDW Coefficient Variation 13.9 % (11.7-14.2); RDW Standard Deviation 52.8 fL (35.1-46.3); Red Blood Cell Count 3.75 M/mm3 (4.30-5.90); White Blood Cell Count 12.42 K/mm3 (4.00-11.30)
[2021-12-15 04:40] LABS: Anion Gap 6 mmol/L (6-16); Blood Urea Nitrogen 26 mg/dL (8-24); Bun/Creatinine Ratio 35.2 (12.0-20.0); CO2, Blood 28 mmol/L (21-32); Calcium, Blood 8.4 mg/dL (8.5-10.1); Chloride, Blood 109 mmol/L (98-108); Creatinine, Blood 0.74 mg/dL (0.60-1.20); Glomerular Filtration Rate >60 (60-); Glucose, Blood 109 mg/dL (70-99); Magnesium, Blood 2.7 mg/dL (1.6-2.4); Phosphorus, Blood 4.6 mg/dL (2.5-4.9); Potassium, Blood 3.9 mmol/L (3.5-5.5); Sodium, Blood 143 mmol/L (136-145)
--- NOTE | 2021-12-15 06:31 | NUR ---
END OF SHIFT SUMMARY NO ACUTE EVENTS OVER NIGHT. PT CONT TO BE INTUBATED WITH VENT SETTINGS AC 16/375/5/35%; COPIOUS AMOUNT OF ETT AND ORAL SECREATIONS. PT REACTIVE TO PAINFUL STIMULI; OPENS EYES OCCATIONALLY TO SOUND; DOES NOT FOLLOW DIRECTIONS OR TRACKS; PROPOFOL INFUSING AT 55MCG/KG/MIN. MAX TEMP 100.4; FAN ON PT HELPED. HR 80-90'S. SBP 130'S. VHP INFUSING VIA OG AT GOAL; MINIMAL RESIDUALS. RECTAL TUBE IN PLACE WITH 250ML OUTPUT. CUETO IN PLACE WITH 1200ML OUTPUT. WILL REPORT TO AM RN WHEN AVAILABLE.
--- NOTE | 2021-12-15 17:07 | NUR ---
SHIFT SUMMARY NO ACUTE CHANGES THIS SHIFT. PT REMAINS INTUBATED AND SEDATED. VENT SETTINGS REMAIN AC 16, TV 375, PEEP 5, FIO2 35%. PT WITH COPIOUS THICK CLEAR ORAL SECRETIONS AND FROTHY WHITE SECRETIONS VIA ETT. PT SEDATED WITH PROPOFOL AT 55 MCG/KG/MIN. PT SPONTANEOUSLY OPENS EYES AND SHAKES HEAD SIDE TO SIDE, BUT DOES NOT FOLLOW COMMANDS OR TRACK WHEN IN ROOM. PICC TO VITO REMAINS C/D/I. NS INFUSING TKO. OGT REMAINS IN PLACE WITH TF INFUSING AT GOAL RATE. ABDOMEN REMAINS DISTENDED, RESIDUALS MINIMAL. CUETO TEMP PROBE IN PLACE WITH CLEAR YELLOW OUTPUT NOTED. RECTAL TUBE REMAINS IN PLACE WITH LIQUID BROWN OUTPUT NOTED. SBW RESTRAINTS IN PLACE. VITAL SIGNS STABLE. WILL CONTINUE TO MONITOR AND REPORT OFF TO ONCOMING RN.
--- NOTE | 2021-12-15 19:15 | NUR ---
ASSUMPTION OF CARE PT REMAINS INTUABTED WITH VENT SETTINGS AC/VC 16/375/5/35%. PT CONTINUES TO HAVE LARGE AMOUNTS OF CLEAR/WHITE THIN SECRETIONS IN ETT. PT RECEIVING PROPOFOL 55MCG/KG/MIN. PT'S EYES OPEN AND MOVING HEAD BACK AND FORTH, DOES NOT FOLLOW COMMANDS OR TRACK MOVEMENTS. TUBE FEEDING INFUSING AT GOAL RATE, RESIDUALS 5ML. CUETO REMAINS IN PLACE DRAINING PALE YELLOW URINE. RECTAL TUBE DRAINING BROWN/GREEN STOOL TO GRAVITY. SEE SHIFT ASSESSMENT.
[2021-12-16 04:48] LABS: BASOPHILS ABSOLUTE AUTO 0.02 K/mm3 (0.00-0.23); BASOPHILS PERCENT AUTO 0 % (0-2); EOSINOPHILS ABSOLUTE AUTO 0.03 K/mm3 (0.00-0.68); EOSINOPHILS PERCENT AUTO 0 % (0-6); Hematocrit 37.2 % (37.0-53.0); Hemoglobin 12.4 g/dL (13.5-17.5); IMMATURE GRAN ABSOLUTE AUTO 0.42 K/mm3 (0.00-0.10); IMMATURE GRAN PERCENT AUTO 4 % (0-1); LYMPHOCYTES ABSOLUTE AUTO 0.51 K/mm3 (0.84-5.20); LYMPHOCYTES PERCENT AUTO 5 % (21-46); MONOCYTES ABSOLUTE AUTO 0.83 K/mm3 (0.16-1.47); MONOCYTES PERCENT AUTO 8 % (4-13); Mean Corpuscular HGB 33.5 pg (26.0-34.0); Mean Corpuscular HGB Conc 33.3 g/dL (31.5-36.5); Mean Corpuscular Volume 101 fL (80-100); Mean Platelet Volume 12.6 fL (9.1-12.4); NEUTROPHILS ABSOLUTE AUTO 9.05 K/mm3 (1.96-9.15); NEUTROPHILS PERCENT AUTO 83 % (41-73); Platelet Count 131 K/mm3 (150-400); RDW Coefficient Variation 13.7 % (11.7-14.2); RDW Standard Deviation 51.1 fL (35.1-46.3); White Blood Cell Count 10.86 K/mm3 (4.00-11.30)
[2021-12-16 05:09] LABS: Anion Gap 5 mmol/L (6-16); Blood Urea Nitrogen 27 mg/dL (8-24); Bun/Creatinine Ratio 38.5 (12.0-20.0); CO2, Blood 29 mmol/L (21-32); Calcium, Blood 8.8 mg/dL (8.5-10.1); Chloride, Blood 108 mmol/L (98-108); Glomerular Filtration Rate >60 (60-); Glucose, Blood 113 mg/dL (70-99); Potassium, Blood 3.7 mmol/L (3.5-5.5); Sodium, Blood 142 mmol/L (136-145)
--- NOTE | 2021-12-16 06:13 | NUR ---
SHIFT SUMMARY PT REMAINS INTUBATED WITH VENT SETTINGS AC/VC+ 16/375/5/35%. RECEIVING PROPOFOL 35MCG/KG/MIN. PT HAS EYES OPEN, MOVING HEAD FROM SIDE TO SIDE FREQUENTLY. PT WAS ABLE TO LIGHTLY SQUEEZE BOTH HANDS BUT STILL HAVING DIFFICULTY WITH TRACKING MOVEMENTS. TUBE FEEDING CONTINUES TO INFUSE AT GOAL RATE VIA OGT WITH MINIMAL RESIDUALS. ABDOMEN REMAINS DISTENDED AND FIRM. RECTAL TUBE DRAINING TO GRAVITY. OUTPUT OF 50ML BROWN/GREEN LIQUID STOOL THIS SHIFT. CUETO DRAINING CLEAR YELLOW URINE WITH ADEQUATE OUTPUT. WILL REPORT TO ONCOMING RN.
--- NOTE | 2021-12-16 17:17 | NUR ---
SHIFT SUMMARY NO ACUTE CHANGES THIS SHIFT. PT REMAINS INTUBATED AND SEDATED. PT HAS REMAINED ON PRESSURE SUPPORT /, FIO2 35%. PT CONTINUES TO HAVE COPIOUS FROTHY WHITE ETT SECRETIONS AND CLEAR THICK ORAL SECRETIONS. PROPOFOL DECREASED THIS AM. PT WITH INCREASED THRASHING OF HEAD SIDE TO SIDE, BUT DID NOT FOLLOW ANY COMMANDS OR TRACK WHEN EYES OPEN. PROPOFOL INFUSING AT 55 MCG/KG/MIN AT THIS TIME. PICC TO LUPE REMAINS C/D/I. NS INFUSING TKO. OGT REMAINS IN PLACE WITH TF INFUSING AT GOAL RATE. MINIMAL RESIDUALS NOTED THIS SHIFT. ABDOMEN REMAINS DISTENDED. RECTAL TUBE REMAINS IN PLACE WITH LIQUID DARK BROWN OUTPUT NOTED. CUETO TEMP PROBE REMAINS IN PLACE WITH LARGE AMOUNT OF CLEAR YELLOW URINE OUTPUT THIS SHIFT. VITAL SIGNS STABLE. SBW RESTRAINTS REMAIN IN PLACE. WILL CONTINUE TO MONITOR AND REPORT OFF TO ONCOMING RN.
--- NOTE | 2021-12-16 19:00 | NUR ---
ASSUMPTION OF CARE PT REMAINS INTUBATED AT THIS TIME. PT HAS BEEN ON PS 7/5 WITH FIO2 35% THROUGHOUT DAY SHIFT. CURRENTLY PT'S RR HAS DECREASED TO 8-10 BREATHS PER MINUTE, RT AT BEDSIDE AND SWITCHED VENT SETTINGS TO AC/VC+ 16/375/5/35% WHICH PT WAS ON PREVIOUS NIGHT. PT CONTINUES TO HAVE MODERATE AMOUNTS OF THIN/FOAMY ORAL AND ETT SECRETIONS. SCOPOLAMINE PATCH PLACED BEHIND L EAR. SBP 80S-90S. PROPOFOL HAS BEEN TITRATED TO 45MCG/KG/MIN. DR RAY AWARE. VHP CONTINUES TO INFUSE AT GOAL RATE, RESIDUALS 25ML OF FORMULA/BILE. PT OPENS EYES DURING CARE, DOES NOT TRACK MOVEMENTS OR FOLLOW ANY COMMANDS. TEMP CUETO IN PLACE DRAINING CLEAR/YELLOW URINE. RECTAL TUBE DRAINING BROWN LIQUID STOOL. SEE SHIFT ASSESSMENT.
[2021-12-17 03:46] LABS: Base Excess Venous 6.7 mmol/L; Bicarbonate Venous 29.9 mmol/L (24.0-30.0); PCO2 Venous 41.4 mmHg (38-42); PO2 Venous 69.4 mmHg (38-42); pH Blood Venous 7.47 (7.34-7.37)
[2021-12-17 03:52] LABS: BASOPHILS ABSOLUTE AUTO 0.02 K/mm3 (0.00-0.23); BASOPHILS PERCENT AUTO 0 % (0-2); EOSINOPHILS ABSOLUTE AUTO 0.09 K/mm3 (0.00-0.68); EOSINOPHILS PERCENT AUTO 1 % (0-6); Hematocrit 36.6 % (37.0-53.0); Hemoglobin 12.1 g/dL (13.5-17.5); IMMATURE GRAN ABSOLUTE AUTO 0.25 K/mm3 (0.00-0.10); IMMATURE GRAN PERCENT AUTO 3 % (0-1); LYMPHOCYTES ABSOLUTE AUTO 1.05 K/mm3 (0.84-5.20); LYMPHOCYTES PERCENT AUTO 11 % (21-46); MONOCYTES ABSOLUTE AUTO 0.93 K/mm3 (0.16-1.47); MONOCYTES PERCENT AUTO 10 % (4-13); Mean Corpuscular HGB 33.2 pg (26.0-34.0); Mean Corpuscular HGB Conc 33.1 g/dL (31.5-36.5); Mean Corpuscular Volume 100 fL (80-100); Mean Platelet Volume 12.6 fL (9.1-12.4); NEUTROPHILS ABSOLUTE AUTO 7.11 K/mm3 (1.96-9.15); NEUTROPHILS PERCENT AUTO 75 % (41-73); Platelet Count 133 K/mm3 (150-400); RDW Coefficient Variation 13.6 % (11.7-14.2); RDW Standard Deviation 50.3 fL (35.1-46.3); Red Blood Cell Count 3.65 M/mm3 (4.30-5.90); White Blood Cell Count 9.45 K/mm3 (4.00-11.30)
[2021-12-17 04:04] LABS: Anion Gap 4 mmol/L (6-16); Blood Urea Nitrogen 25 mg/dL (8-24); Bun/Creatinine Ratio 35.1 (12.0-20.0); CO2, Blood 30 mmol/L (21-32); Calcium, Blood 8.5 mg/dL (8.5-10.1); Chloride, Blood 108 mmol/L (98-108); Creatinine, Blood 0.71 mg/dL (0.60-1.20); Glomerular Filtration Rate >60 (60-); Glucose, Blood 91 mg/dL (70-99); Sodium, Blood 142 mmol/L (136-145)
--- NOTE | 2021-12-17 05:51 | NUR ---
SHIFT SUMMARY PT REMAINS INTUBATED WITH VENT SETTINGS AC/VC+ 16/375/5/35%. PT RECEIVING PROPOFOL 50MCG/KG/MIN AND NS TKO. TUBE FEEDINGS CONTINUE TO INFUSE AT GOAL RATE WITH MINIMAL RESIDUALS. ABDOMEN REMAINS DISTENDED AND FIRM. ETT SECRETIONS AND ORAL SECRETIONS VARY FROM SMALL TO LARGE AMOUNTS OF THIN/FOAMY WHITE. PT SPENT MOST OF NIGHT WITH EYES OPEN AND MOVING HEAD SIDE TO SIDE, PT CURRENTLY SLEEPING. TEMP CUETO CONTINUES TO DRAIN CLEAR/YELLOW URINE WITH SHIFT OUTPUT 875ML. RECTAL TUBE DRAINING LIQUID BROWN STOOL TO GRAVITY. HOSPITALIST NOTIFIED OF AM LABS, ORDERS RECEIVED FOR KCL THAT IS CURRENTLY INFUSING. WILL REPORT TO ONCOMING RN.
--- NOTE | 2021-12-17 17:01 | NUR ---
SHIFT SUMMARY NO ACUTE CHANGES THIS SHIFT. PT REMAINS INTUBATED AND SEDATED. VENT SETTINGS REMAIN AC 16, TV 375, PEEP 5, FIO2 35%. PT WITH LESS SECRETIONS THROUGH THIS SHIFT WITH ETT AND ORAL SUCTION. PT SEDATED WITH PROPOFOL AT 40 MCG/KG/MIN. PT WITH EPISODES OF RESTLESSNESS AND THRASHING HEAD SIDE TO SIDE, BUT PT IS UNABLE TO FOLLOW ANY COMMANDS. PT DOES NOT TRACK WHEN EYES ARE OPEN. COUGH AND GAG REMAIN PRESENT. PICC TO VITO REMAINS C/D/I. NS INFUSING TKO. LEVOPHED STARTED THIS AFTERNOON AT 2 MCG/MIN FOR SBP 70'S. PT WITH STABLE VITAL SIGNS AT THIS TIME. OGT REMAINS IN PLACE WITH TF INFUSING AT GOAL RATE. CUETO TEMP PROBE REMAINS IN PLACE WITH YELLOW URINE OUTPUT NOTED. RECTAL TUBE REMAINS IN PLACE WITH LIQUID BROWN OUTPUT NOTED. SBW RESTRAINTS REMAIN IN PLACE. WILL CONTINUE TO MONITOR AND REPORT OFF TO ONCOMING RN.
--- NOTE | 2021-12-17 19:00 | NUR ---
ASSUMPTION OF CARE PT REMAINS INTUBATED WITH VENT SETTINGS AC/VC+ 16/375/5/35%. PT RECEIVING PROPOFOL 40MCG/KG/MIN, LEVOPHED 2MCG/MIN, AND NS TKO. PT AWAKE, ERRATICALLY MOVING HEAD SIDE TO SIDE AND RESTLESS. TUBE FEEDING CONTINUES INFUSING AT GOAL RATE VIA OGT WITH 30ML RESIDUALS. ABDOMEN REMAINS DISTENDED AND FIRM. CUETO PATENT DRAINING CLEAR/YELLOW URINE. RECTAL TUBE DRAINING DARK BROWN LIQUID STOOL TO GRAVITY. SBP 130S, LEVOPHED TITRATED TO 1MCG/MIN. PT MEDICATED PER EMAR FOR AGITATION. SEE SHIFT ASSESSMENT.
[2021-12-18 03:35] LABS: BASOPHILS ABSOLUTE AUTO 0.02 K/mm3 (0.00-0.23); BASOPHILS PERCENT AUTO 0 % (0-2); EOSINOPHILS ABSOLUTE AUTO 0.09 K/mm3 (0.00-0.68); EOSINOPHILS PERCENT AUTO 1 % (0-6); Hematocrit 33.7 % (37.0-53.0); Hemoglobin 11.5 g/dL (13.5-17.5); IMMATURE GRAN ABSOLUTE AUTO 0.13 K/mm3 (0.00-0.10); IMMATURE GRAN PERCENT AUTO 2 % (0-1); LYMPHOCYTES ABSOLUTE AUTO 1.09 K/mm3 (0.84-5.20); LYMPHOCYTES PERCENT AUTO 13 % (21-46); MONOCYTES ABSOLUTE AUTO 0.79 K/mm3 (0.16-1.47); MONOCYTES PERCENT AUTO 9 % (4-13); Mean Corpuscular HGB 34.3 pg (26.0-34.0); Mean Corpuscular HGB Conc 34.1 g/dL (31.5-36.5); Mean Corpuscular Volume 101 fL (80-100); Mean Platelet Volume 12.3 fL (9.1-12.4); NEUTROPHILS ABSOLUTE AUTO 6.24 K/mm3 (1.96-9.15); NEUTROPHILS PERCENT AUTO 75 % (41-73); Platelet Count 133 K/mm3 (150-400); RDW Coefficient Variation 13.6 % (11.7-14.2); RDW Standard Deviation 50.1 fL (35.1-46.3); Red Blood Cell Count 3.35 M/mm3 (4.30-5.90); White Blood Cell Count 8.36 K/mm3 (4.00-11.30)
[2021-12-18 03:51] LABS: Anion Gap 6 mmol/L (6-16); Blood Urea Nitrogen 24 mg/dL (8-24); Bun/Creatinine Ratio 36.1 (12.0-20.0); CO2, Blood 26 mmol/L (21-32); Calcium, Blood 7.8 mg/dL (8.5-10.1); Chloride, Blood 108 mmol/L (98-108); Creatinine, Blood 0.67 mg/dL (0.60-1.20); Glomerular Filtration Rate >60 (60-); Glucose, Blood 104 mg/dL (70-99); Magnesium, Blood 2.1 mg/dL (1.6-2.4); Phosphorus, Blood 2.6 mg/dL (2.5-4.9); Potassium, Blood 3.2 mmol/L (3.5-5.5); Sodium, Blood 140 mmol/L (136-145)
--- NOTE | 2021-12-18 04:57 | NUR ---
SPONTANEOUS PT PLACED ON SPONTANEOUS BY RT AT APPROX 0330 WITH PS 5, PEEP 5, AND FIO2 30%. PT'S TACHYPNEIC WITH RATE IN 30S, THRASHING HEAD SIDE TO SIDE. PT DOES NOT FOLLOW ANY COMMANDS. MEDICATED PER EMAR. RR IS SLOWING WITH RATE IN LOW-MID 20S. TIDAL VOLUMES 300S-500S.
--- NOTE | 2021-12-18 05:54 | NUR ---
SHIFT SUMMARY PT REMAINS INTUBATED. RT SWITCHED PT OVER TO SPONTANEOUS MODE WITH PS 5, PEEP 5 AND FIO2 30%. PT TOLERATING WELL, RR 18-22 WITH TIDAL VOLUMES 400S-600S. PT RECEIVING PROPOFOL 35MCG/KG/MIN AND NS TKO. LEVOPHED HAS BEEN ON STANDBY SINCE MIDNIGHT. PT HAS MODERATE AMOUNTS OF THIN CLEAR/WHITE SECRETIONS IN ETT AND ORAL. TUBE FEEDING CONTINUES TO INFUSE AT GOAL RATE VIA OGT WITH MINIMAL RESIDUALS THROUGHOUT SHIFT. ABDOMEN REMAINS DISTENDED AND FIRM. RECTAL TUBE DRAINING DARK BROWN LIQUID STOOL TO GRAVITY, OUTPUT 50ML. TEMP CUETO IN PLACE DRAINING YELLOW URINE WITH OUTPUT OF 1075ML THIS SHIFT. PT HAS EYES OPEN, SHAKING HEAD BACK AND FORTH. MEDICATED WITH ATIVAN PER EMAR FOR AGITATION. WILL REPORT TO ONCOMING RN.
--- NOTE | 2021-12-18 07:23 | NUR ---
REPORT FROM PM RN, PATIENT MOVING HEAD LEFT TO RIGHT CONSTANTLY, RESTLESS LEG MOVEMENTS, PROPOFOL INFUSING, RESTRAINTS IN PLACE, WCTM
--- NOTE | 2021-12-18 08:36 | NUR ---
DR BENITEZ AND RESIDENTS ROUNDED ON PATIENT, UPDATE PATIENT CARE TO THEM
--- NOTE | 2021-12-18 09:52 | NUR ---
DR KNOX ROUNDED, POSSIBLE EXTUBATION, TO START PRECEDEX, TITRATE PROPOFOL OFF, SB SETTINGS SINCE 0330 AM, PATIENT NOT FOLLOWING DIRECTIONS, NOT TRACKING STAFF, NOT WITH DRAWING FROM PAIN REPORTED TO DR KNOX
--- NOTE | 2021-12-18 11:23 | NUR ---
extubated 1100, pateint tolerated with ease, rt ayaka and rn elin at bedside, vss, nc 2liters, sats 95%, patient mumbeling incoherantly, unable to console or redirect patient, wctm
--- NOTE | 2021-12-18 12:03 | NUR ---
PATIENT SCREAMING OUT MUMBLED WORDS, GROANING, CONTASTANT MOVEMENT FLAILING ARMS AND LEGS, INCONSOLABLE OR REDIRECTED. REPORTED TO DR ELI, EMDICATED WITH 5MG ZYPREXA, WCTM
--- NOTE | 2021-12-18 18:30 | NUR ---
PATIENT MUMBLED AND MOANING SPEECH, SOME WORDS UNDERSTANDABLE BUT MINIMAL. UNABLE TO FOLLOW DIRECTIONS, RESTLESS ARMS AND LEG MOVEMENTS CONSTANTLY, TRACKING STAFF WITH EYES, UPDATED FIANCE REMI. PATIENT EXTIBATED TODAY AT 1100, PATIENT TOLERATED WITH EASE, AGGITATION INCREASED, MEDICATED WITH FENTANYL AND ZYPREXA, PATIENT RESTING, NO DISTRESS, RESP EVEN AND NONLABORED, 2L VIA NC. RECTAL TUBE IN PLACE, PROPOFOL AND LEVOPHED DISCONEINUTED, PRECEDEX INFUSING AT 6 MCG, TKO NS. REPOSITIONED THROUGH OUT THE SHIFT, WILL RELAY TO PM RN, WCTM
--- NOTE | 2021-12-18 19:05 | NUR ---
Assumed care. Report received from jaimee OWEN. Pt in bed, on 02 via NC 2L/min. IV pumps running Precedex 0.6 mcg/kg/hr, NS 10 ml/hr. PT has PICC in VITO, WNL and R/ac iv access. Holman catheter in place, rectal tube in place. PAS bilateral calf in place. No acute needs at this time, VS stable. Will continue to monitor.
--- NOTE | 2021-12-19 06:23 | NUR ---
Shift summary. Pt continues in bed, on room air. PICC in VITO, R/ac IV pulled by pt during shift. Precedex running at 1.2 mcg/kg/hr, NS 10 ml/hr. Holman catheter in place, 2300 mls out this shift. Rectal tube removed this shift. Pt started shift with precedex at 0.6 mcg/kg/hr, very restless in bed, pulled tele leads and Sp02 probe off multiple times, medicated with PRN zyprexa, PRN fentanyl. Pt still restless and pulling at lines and tubes, confused at times about surroundings and events. Pt seemed to settle down after rectal tube removal but remained confused and restless. Currently resting quietly in bed, VS stable. See shift assessment for further details. Will continue to monitor and report off to dayshift RN.
[2021-12-19 07:20] LABS: BASOPHILS ABSOLUTE AUTO 0.02 K/mm3 (0.00-0.23); BASOPHILS PERCENT AUTO 0 % (0-2); EOSINOPHILS ABSOLUTE AUTO 0.11 K/mm3 (0.00-0.68); EOSINOPHILS PERCENT AUTO 1 % (0-6); Hematocrit 36.1 % (37.0-53.0); Hemoglobin 12.4 g/dL (13.5-17.5); IMMATURE GRAN ABSOLUTE AUTO 0.09 K/mm3 (0.00-0.10); IMMATURE GRAN PERCENT AUTO 1 % (0-1); LYMPHOCYTES ABSOLUTE AUTO 0.83 K/mm3 (0.84-5.20); LYMPHOCYTES PERCENT AUTO 8 % (21-46); MONOCYTES ABSOLUTE AUTO 0.86 K/mm3 (0.16-1.47); MONOCYTES PERCENT AUTO 8 % (4-13); Mean Corpuscular HGB 33.6 pg (26.0-34.0); Mean Corpuscular HGB Conc 34.3 g/dL (31.5-36.5); Mean Corpuscular Volume 98 fL (80-100); Mean Platelet Volume 12.2 fL (9.1-12.4); NEUTROPHILS ABSOLUTE AUTO 8.57 K/mm3 (1.96-9.15); NEUTROPHILS PERCENT AUTO 82 % (41-73); Platelet Count 148 K/mm3 (150-400); RDW Coefficient Variation 13.2 % (11.7-14.2); RDW Standard Deviation 47.1 fL (35.1-46.3); Red Blood Cell Count 3.69 M/mm3 (4.30-5.90); White Blood Cell Count 10.48 K/mm3 (4.00-11.30)
[2021-12-19 07:35] LABS: Anion Gap 7 mmol/L (6-16); Blood Urea Nitrogen 17 mg/dL (8-24); Bun/Creatinine Ratio 29.4 (12.0-20.0); CO2, Blood 23 mmol/L (21-32); Calcium, Blood 8.6 mg/dL (8.5-10.1); Chloride, Blood 114 mmol/L (98-108); Creatinine, Blood 0.58 mg/dL (0.60-1.20); Glomerular Filtration Rate >60 (60-); Glucose, Blood 76 mg/dL (70-99); Potassium, Blood 3.2 mmol/L (3.5-5.5); Sodium, Blood 144 mmol/L (136-145)
--- NOTE | 2021-12-19 09:07 | NUR ---
ASSUMED CARE OF PATIENT: AOX1 ONLY ALERT TO SELF, MAKING ATTEMPTS TO SLIDE OUT OF BED, PULLING AT PICC LINE, DEX AT 1.2, ZYPREXA 5MG GIVEN, VSS ON RA, HARSH COUGH NON PRODUCTIVE, CUETO DRAINING ADEQUATE CYNTHIA OUTPUT, +2 PULSES, SR 80S, FOLLOWS COMMANDS WHEN NOT AGITATED, WILL CONTINUE TO MONITOR.
--- NOTE | 2021-12-19 18:10 | NUR ---
AOX1, ONLY ALERT TO SELF, MUMBLES WORDS, DEX DOWN TO 0.2 BUT REQUIRED TO GO BACK UP TO 1.O, ZYPREXA 5MG X2 GIVEN FOR INCREASED AGITATION/PULLING AT LINES, NSR 80/90S, +2 PULSES, BP WNL WHEN CALM, LUNGS COARSE ALL ALEGRIA, NON PRODUCTIVE COUGH, ABDOMEN AUDIBLE BOWLS NON TENDER, UOP ADEQUATE CLEAR YELLOW, WILL CONTINUE TO MONITOR AND REPORT TO NIGHT RN.
--- NOTE | 2021-12-19 19:26 | NUR ---
Assumed care. Report received from jaimee OWEN. Pt in bed, on room air. PICC in VITO, Precedex running at 1.0 mcg/kg/hr, NS at 10 ml/hr. Holman catheter in place. VS stable. Pt alert but confused, very restless and pulling on tele cords/other lines. Will continue to monitor.
--- NOTE | 2021-12-20 06:13 | NUR ---
Shift summary. Pt rested in bed throughout shift, able to sleep much of the night. Dr. Regan notified at beginning of shift that patient was restless and pulling at lines/tubing despite precedex at 1 mcg/kg/hr. Orders obtained for ativan 1-2 mg Q2. Pt quiet/sleeping after ativan, precedex titrated off during shift. Pt on 02 via NC, 2 L/min. PICC in VITO WNL. Holman catheter in place, 700 mls out this shift. VS stable throughout shift, see shift assessment for further details. Will continue to monitor and report off to dayshift RN.
--- NOTE | 2021-12-20 17:05 | NUR ---
PT SUMMARY: PT TRANSFERRED FROM ICU 3 TP PCU 1, REPORT RECEIVED FROM CAREN OWEN. PT ETOH WITHDRAWAL POST EXTUBATED, CONFUSED ALERT ONLY TO SELF, TALKS NONSENSICAL, YELLS OUT, ON WRIST RESTRAINTS, TRYING TO GET OUT OF BED PULLS ON LINES AND CATHETER, RECEIVED IM ZYPREXA PRIOR TO TRANSFER STILL REMAINS RESTLESS IN BED WAS GIVEN ANOTHER DOSE AT [address] BENITEZ MADE AWARE STILL NO BENZOS FOR NOW UNTIL PT CLEARS UP. VITALS HRR SINUS 90-110'S, SATS ABOVE 90% ON RA BUT PT C/O OF SOB 2L OF O2 APPLIED FOR COMFORT, BP SYSTOLIC WAS ELEVATED AT 180'S, PRN HYDRALAZINE GIVEN X1 AND BPS WENT DOWN TO 130'S. PT HAS CUETO DRAINING YELLOW BROWN VIA GRAVITY. ATTENDS IN PLACE. REMAINS NPO, WILL SWALLOW EVAL IN AM IF PT IS MORE ALERT. ORAL CARE PROVIDED AND MOUTH SWABS OFFERED AT THIS TIME. CALL LIGHTS WITHIN REACH, WILL MONITOR TIL THE END OF SHIFT TO REPORT TO ONCOMING SHIFT
[2021-12-21 04:37] LABS: Anion Gap 14 mmol/L (6-16); Blood Urea Nitrogen 16 mg/dL (8-24); CO2, Blood 17 mmol/L (21-32); Chloride, Blood 116 mmol/L (98-108); Creatinine, Blood 0.64 mg/dL (0.60-1.20); Glomerular Filtration Rate >60 (60-); Glucose, Blood 68 mg/dL (70-99); Potassium, Blood 3.1 mmol/L (3.5-5.5); Sodium, Blood 147 mmol/L (136-145)
--- NOTE | 2021-12-21 04:58 | NUR ---
IRON PILER SUMMARY PT CONTINUES TO BE VERY CONFUSED, AAOX1. DOES FOLLOW SOME COMMANDS. VERY RESTLESS THROUGH THE NIGHT, HAS NOT SLEPT AT ALL. CONSTANTLY PULLING AT WRIST RESTRAINTS AND AGITATED AT TIMES. MEDICATED TWICE WITH IM ZYPREXA WITH LITTLE EFFECT. SPOKE WITH DR CARTWRIGHT REGARDING ADDITIONAL MEDS TO HELP WITH AGITATION, RECIEVED ORDER FOR IV HALDOL 3MG WHICH DID HELP A LITTLE. PT STILL AWAKE AT THIS TIME. MEDICATED WITH IV HYDRALAZINE X1 FOR SBP 180'S. SBP 140'S AFTER BEING MEDICATED. PT HAS HAD SEVERAL MUCOUSY BM'S THROUGH THE NIGHT, ATTENDS CHANGED FREQUENTLY. WILL CONTINUE TO MONITOR.
--- NOTE | 2021-12-21 16:55 | NUR ---
Pt remains confused, but improving. Remains restrained d/t continued pulling at lines/tubing and risk for self injury. VSS with exception to AM BP- PRN Hydralazine x1. No c/o pain. FC maintained for strict I&O, AUO. Incontinent of stool x2. Speech evaluation completed, diet advanced. Sat EOB with 2 person max assist, very deconditioned. Frequent rounds to ensure pt safety. Pt repositioned in bed and ROM performed q 2 hrs. Pt in no apparent distress. Will continue to monitor until transfer of care to oncoming RN.
--- NOTE | 2021-12-22 05:20 | NUR ---
SHIFT SUMMARY NO ACUTE CHANGES THIS SHIFT. ALERT/ORIENTED TO SELF. FOLLOWING COMMANDS VERY SELDOMLY. NOT ON TELEMETRY. PT REMAINS ON RA. PT WITH SOME HTN, PRN HYDRALZINE ADMINISTERED X1 THIS SHIFT AT THIS POINT. PT HAS HAD MULTIPLE INCONTINENT BM'S THIS SHIFT. BED CHANGED MULTIPLE TIMES. CUETO PATENT AND DRAINING. SBWR's PRESENT AND ON PT, OT HAS BEEN ABLE TO GET OUT A COUPLE TIMES TO WHICH STAFF PLACE PT BACK IN. PT HAS BEEN RESISTENT TO CARE AT TIMES, HAS BEEN ABLE TO PULL WRIST RESTRAINTS OFF AND TRY TO GET OOB/.PULL ON CUETO/PICC. IM ZYPREXA NOT SEEMING TO BE EFFEXTIVE IN KEEPING PT SAFE AND KEEPING HIS SOMEWHAT COMBATIVE BEHAVIOR AT BAY, IV HALDOL DOSE ADMINISTERED X1 THIS SHIFT TO MUCH HELP. PICC INTACT. PT TOLERATED PO INTAKE THIS SHIFT. ORAL CARE DIFFICULT BUT THIS NURSE WAS ABLE TO CONVINVE PT INTO ALLOWING A FEW TIMES. BED ALARM ON. BED IN LOW POSITION.
--- NOTE | 2021-12-22 06:37 | NUR ---
TATS PT HAS REPEATEDLY BROKEN FREE OF SOFT WRIST RESTRAINTS AND THEN PROCEEDS TO IMMEDIATELY PULL AT PICC, CUETO, OR SWING LEGS OVER SIDERAILS AND TRY TO GET OOB. ROLLING PT BACK INTO A SAFE POSITION PROVES TO BE DIFFICULT PT BECOMES QUITE RESISITENT TO STAFF IN THESE SITUATIONS. DECISION MADE TO PLACE PATIENT IN BILAT WRIST TOUGH CUFFS DUE TO PT'S STRENGTH AND EASE AT GETTING OUT OF SOFT RESTRAINTS, DESPITE MULTIPLE PRN MEDICATIONS FOR AGITATION PER EMAR. PT HAS TOLERATED THIS WELL AND HAS NOT PROVEN TO BE ABLE TO GET OUT OF THESE RESTRAINTS AT THE TIME OF THIS NOTE.
[2021-12-22 12:27] LABS: Anion Gap 7 mmol/L (6-16); Blood Urea Nitrogen 16 mg/dL (8-24); Bun/Creatinine Ratio 21.1 (12.0-20.0); CO2, Blood 23 mmol/L (21-32); Chloride, Blood 117 mmol/L (98-108); Creatinine, Blood 0.76 mg/dL (0.60-1.20); Glomerular Filtration Rate >60 (60-); Glucose, Blood 144 mg/dL (70-99); Sodium, Blood 147 mmol/L (136-145)
--- NOTE | 2021-12-22 16:32 | NUR ---
Pt remains in restraints- continues to pull at lines/tubing, pt safety at risk. A&O x1- to self, requires frequent reorientation, forgetful. VSS- MD notified regarding inc DBP- no new orders at this time. Afebrile. No c/o pain. FC maintained- AUO. Incontinent of stool x1. Tolerating current diet. Worked with PT- sat EOB, 2+ person max assist. Fiance updated regarding POC. Frequent rounds to ensure pt safety. Pt repositioned and PROM performed q2hrs. Pt in no apparent distress at this time. Will continue to monitor until transfer of care to oncoming RN.
--- NOTE | 2021-12-22 22:47 | NUR ---
Assumed care of pt at 1900. A/O to self only. Confused. BL tough cuff restraints to protect pt and lines. Maintains over 92% on RA, LS Exp wheeze RUL and dim the rest. VSS. Reports no pain, CP/pressure. Moderately distended abdomen that is firm with hyperactive bowel sounds. Holman cath draining to gravity zeke urine with heavy sediment. Scattered small scabs t/o with scattered bruising. Will update as changes occur.
[2021-12-23 12:35] LABS: C DIFFICILE DNA NEGATIVE (Negative)
--- NOTE | 2021-12-23 17:35 | NUR ---
Pt remains A&Ox1- to self, requires frequent reorientation/forgetful. VSS with exception to DBP- Zestril started. Iwna=042.0- cooling measures utilized, PRN Tylenol to be used only for Vzfs=412 or > per MD. FC removed- incontinent void within 4hrs post removal, bladder scan indicated GWY=320. Incontinent of stool x2- C. diff negative as of 12/23/21 sample. Tolerating current diet- speech therapy attempted to advance diet, but pt noncompliant in AM. PICC removed- site remains C/D/I. Worked with PT- stood EOB with 2 person max assist, pivot transfer to chair, sat in chair x6 hrs. Restraints d/c'd- lines requiring protection were removed per MD order. Frequent rounds to ensure pt safety. Pt repositioned q2hrs to prevent pressure ulcers. Pt in no apparent distress at this time. Will continue to monitor until transfer of care.
--- NOTE | 2021-12-23 20:57 | NUR ---
Assumed care of pt at 1900. A/O to self only. Patient is very confused. No pain/CP or pressure. Inspiratory wheezes on top and dim at bases, maintains over 95% on RA. Abdomen firm and moderately distended with hyperactive bowel tones, Cdiff negative. Pt without catheter and incontinent of urine. Paola in place as patient tries to get out of bed and isn't redirectable in his confused state. Will update as changes occur.
[2021-12-24 06:02] LABS: Anion Gap 9 mmol/L (6-16); Blood Urea Nitrogen 18 mg/dL (8-24); Bun/Creatinine Ratio 21.9 (12.0-20.0); CO2, Blood 24 mmol/L (21-32); Chloride, Blood 116 mmol/L (98-108); Creatinine, Blood 0.82 mg/dL (0.60-1.20); Glomerular Filtration Rate >60 (60-); Glucose, Blood 101 mg/dL (70-99); Potassium, Blood 2.9 mmol/L (3.5-5.5); Sodium, Blood 149 mmol/L (136-145)
--- NOTE | 2021-12-24 17:01 | NUR ---
SHIFT SUMMARY PT ALERT, ORIENTED TO SELF ONLY. SPEECH GARBLED, HARD TO UNDERSTAND AT TIMES. WHEN ASKED WHERE HE IS, PT STATES HE IS AT HIS APARTMENT, UNABLE TO ANSWER DATE/EVENT. PT MAKES MULTIPLE ATTEMPS TO GET OUT OF BED WITH MARY ANN IN PLACE, STATES HE IS GOING FISHING, WHEN ATTEMPTED TO REORIENTED, PT BECOMES AGGITATED. PT FOUND TO HAVE RIPPED HIS GOWN IN HALF AND ATTEMPTED TO RIP MARY ANN VEST, BILATERAL WRIST RESTRAINTS PLACE, NOTIFIED DR BENITEZ. PT CONTINEUS TO BECOME AGGITATED WITH RESTRAINTS, ATTEMPTS TO GET OUF BED AND BECOMES AGGITATED WITH STAFF, NOTIFIED DR BENITEZ, ADMINISTERED ONE TIME SEROQUEL. PT DENIES PAIN, SOB, NAUSEA AND DIZZINESS. NEW ORDER FOR IV FLUIDS THIS AM, NOTIFIED DR MORA IV ACCESS AND PT REFUSES TO ALLOW A NEW ONE TO BE PLACED. ENCOURAGING PO WATER INTAKE T/O SHIFT. PT BP ELEVATED. OTHER VSS. NO OTHER ACUTE CHANGES NOTED. WILL CONTINUE TO MONITOR UNITL REPORT GIVEN TO ONCOMING RN.
--- NOTE | 2021-12-24 21:50 | NUR ---
PT HAS BEEN AWAKE, RESTLESS, MARY ANN IN PLACE AND BILAT SOFT WRIST RESTRAINTS. PT HAS MANAGED TO REMOVE WRIST RESTRAINTS SEVERAL TIMES, THIS RN SITTING AT DOORWAY TO KEEP PT IN VIEW FOR SAFETY. WATCHING OLYMPICS IN TV- INTERMITTANTLY. CONT CONFUSED IN GENERAL, ORIENTED TO SELF. STATES HE'S WAITING FOR A GIRL TO COME AND THEN GO TO [place]. VSS, NO IV PER ORDER. INCONT OF URINE. PT VERBALIZES SUSPICION OF MEDS, ATTEMPTED TO GIVE HS MEDS W PUDDING AND PT IMMEDIATELY SPIT OUT ON BED. WILL TRY AGAIN LATER. DENIES PAIN.
--- NOTE | 2021-12-25 00:30 | NUR ---
PT IS SLEEPING SOUNDLY, CONT TO MONITOR CLOSELY, INSIGHT OBSERVATION.
--- NOTE | 2021-12-25 05:00 | NUR ---
AWAKENED FOR VS AND LABDRAW. ALERT. CONT W GARBLED AND RAMBLING SPEECH. MANAGES TO CLEARLY SAY THAT "YES, HE SLEPT WELL". INCONT OF CONCENTRATED URINE. CONT W MARY ANN & WRISTS RESTRAINED.
[2021-12-25 05:32] LABS: Anion Gap 8 mmol/L (6-16); Blood Urea Nitrogen 16 mg/dL (8-24); Bun/Creatinine Ratio 19.8 (12.0-20.0); CO2, Blood 24 mmol/L (21-32); Calcium, Blood 8.5 mg/dL (8.5-10.1); Chloride, Blood 114 mmol/L (98-108); Creatinine, Blood 0.81 mg/dL (0.60-1.20); Glomerular Filtration Rate >60 (60-); Glucose, Blood 109 mg/dL (70-99); Potassium, Blood 3.4 mmol/L (3.5-5.5); Sodium, Blood 146 mmol/L (136-145)
[2021-12-26 04:22] LABS: BASOPHILS ABSOLUTE AUTO 0.02 K/mm3 (0.00-0.23); BASOPHILS PERCENT AUTO 0 % (0-2); EOSINOPHILS PERCENT AUTO 1 % (0-6); Hematocrit 35.9 % (37.0-53.0); IMMATURE GRAN ABSOLUTE AUTO 0.09 K/mm3 (0.00-0.10); IMMATURE GRAN PERCENT AUTO 1 % (0-1); LYMPHOCYTES ABSOLUTE AUTO 1.06 K/mm3 (0.84-5.20); LYMPHOCYTES PERCENT AUTO 12 % (21-46); MONOCYTES ABSOLUTE AUTO 0.59 K/mm3 (0.16-1.47); MONOCYTES PERCENT AUTO 6 % (4-13); Mean Corpuscular HGB 33.1 pg (26.0-34.0); Mean Corpuscular HGB Conc 33.4 g/dL (31.5-36.5); Mean Corpuscular Volume 99 fL (80-100); Mean Platelet Volume 12.8 fL (9.1-12.4); NEUTROPHILS ABSOLUTE AUTO 7.39 K/mm3 (1.96-9.15); NEUTROPHILS PERCENT AUTO 80 % (41-73); Platelet Count 124 K/mm3 (150-400); RDW Coefficient Variation 13.3 % (11.7-14.2); Red Blood Cell Count 3.62 M/mm3 (4.30-5.90); White Blood Cell Count 9.25 K/mm3 (4.00-11.30)
[2021-12-26 04:53] LABS: Anion Gap 6 mmol/L (6-16); Blood Urea Nitrogen 13 mg/dL (8-24); Bun/Creatinine Ratio 15.5 (12.0-20.0); CO2, Blood 27 mmol/L (21-32); Calcium, Blood 8.9 mg/dL (8.5-10.1); Chloride, Blood 109 mmol/L (98-108); Creatinine, Blood 0.84 mg/dL (0.60-1.20); Glomerular Filtration Rate >60 (60-); Glucose, Blood 108 mg/dL (70-99); Potassium, Blood 4.1 mmol/L (3.5-5.5); Sodium, Blood 142 mmol/L (136-145)
--- NOTE | 2021-12-26 05:36 | NUR ---
SHIFT SUMMARYH PATIENT FOUND TO BE PLESANTLY CONFUSED ONLY ORIENTED TO SELF AND SURROUNDINGS, PLESANT WITH CARE. FOLLOWING COMMANDS AND MOVES ALL EXTREMEITES. SLEPT VERY WELL MOST OF SHIFT. NO TELE. VSS. ON RA SATING LOW 90'S. NO PAIN OR DISTRESS UPON ASSESSMENT. WAS ABLE TO COMPLETELY DISCONTINUE RESTRAINTS AFTER MIDNIGHT AND PATIENT PROVED TO BE COOPERATIVE AND NOT A HIGH FALL RISK AT THIS TIME. FALL PRECAUTIONS IN PLACE. TURNS SELF WELL IN BED. TOLERATING PUREED DIET AND IS A TOTAL FEED. MEDS IN APPLESAUCE. VOIDING WELL PER URINAL AND INCONTINENT AT TIMES. NO ACUTE CONCERNS AT THIS TIME. WILL CONTINUE TO MONIOTR UNTIL REPORT GIVEN TO CESARIO OWEN.
[2021-12-26] MEDS ORDERED: FOLI1 PO (11:43)
[2021-12-26] MEDS ORDERED: LISI20 PO (11:44)
[2021-12-26] MEDS ORDERED: MELA3 PO (11:44)
[2021-12-26] MEDS ORDERED: MULTIPLE VITAM1 EACH PO (11:56)
[2021-12-26] MEDS ORDERED: Seroquel Xr50 MG PO (11:57)
[2021-12-26] MEDS ORDERED: B-1100 M1 PO (11:58)
[2021-12-26] MEDS ORDERED: VISBIOME 112.51 EACH PO (11:59)
[2021-12-26] MEDS ORDERED: Nicoderm Cq1 EAC1 TOP (12:06)
--- NOTE | 2021-12-26 16:32 | NUR ---
DISCHARGE NOTE PT SIGNIFICANT OTHER ARASELI WAS AT BEDSIDE FOR DISCHARGE INSTRUCTIONS. PATIENT WAS EVALUATED BY OCCUPATIONAL THERAPY PRIOR TO DISCHARGE. PT WAS RECCOMENDED FOR HOME HEALTH FOLLOW UP PER EMAR. VITAL SIGNS WERE STABLE T/O SHIFT, PT WAS ON ROOM AIR AND SATS WERE BETWEEN 88%-92%. HE CONTINUED TO DENY CHEST PAIN/PRESSURE T/O SHIFT. DISCHARGE INSTUCTIONS INCLUDING FOLLOW UP APPOINTMENTS, NEW MEDICATIONS, PT EDUCATION PERTAINING TO NEW MEDICATIONS AND DX WERE GIVEN TO BOTH PATIENT AND SIGNIFICANT OTHER. PT LEFT PCU ROOM APPROX. 1511 VIA WHEELCHAIR ESCORTED BY ZACH WOOTEN CNA AND ANAYELI RUSH RN. ALL OF PT BELONGINGS WENT WITH PT.
== END 2021-12-26 15:11 | disposition home health service (06) | DRG 870 ==
LOC: ER 10:51 → ICUW 14:28 → ICUE 14:28 → PCU 12-20 11:55
PROVIDERS: Emergency Medicine; Family Medicine; Hospitalist; Internal Medicine; Internal Medicine Critical Care Medicine; Nurse Practitioner Acute Care; Student in an Organized Health Care Education/Training Program; ADMIT Internal Medicine
PROC: HZ2ZZZZ Detoxification Services for Substance Abuse Treatment (ICD-10-PCS; 2021-12-06)
PROC: 5A09457 Assistance with Respiratory Ventilation, 24-96 Consecutive Hours, Continuous Positive Airway Pressure (ICD-10-PCS; 2021-12-06)
PROC: 5A1955Z Respiratory Ventilation, Greater than 96 Consecutive Hours (ICD-10-PCS; principal; 2021-12-09)
PROC: 0BH18EZ Insertion of Endotracheal Airway into Trachea, Via Natural or Artificial Opening Endoscopic (ICD-10-PCS; 2021-12-09)
PROC: 05HY33Z Insertion of Infusion Device into Upper Vein, Percutaneous Approach (ICD-10-PCS; 2021-12-09)
PROC: 3E033XZ Introduction of Vasopressor into Peripheral Vein, Percutaneous Approach (ICD-10-PCS; 2021-12-17)
DX: A41.9 Sepsis, unspecified organism (principal); J15.9 Unspecified bacterial pneumonia; J96.01 Acute respiratory failure with hypoxia; G92.8 Other toxic encephalopathy; F10.239 Alcohol dependence with withdrawal, unspecified; R18.8 Other ascites; J44.0 Chronic obstructive pulmonary disease with (acute) lower respiratory infection; J44.1 Chronic obstructive pulmonary disease with (acute) exacerbation; E87.0 Hyperosmolality and hypernatremia; Z20.822 Contact with and (suspected) exposure to COVID-19; E87.6 Hypokalemia; Z78.1 Physical restraint status; F15.10 Other stimulant abuse, uncomplicated; I10 Essential (primary) hypertension; D69.6 Thrombocytopenia, unspecified; R65.20 Severe sepsis without septic shock; E80.6 Other disorders of bilirubin metabolism; K76.0 Fatty (change of) liver, not elsewhere classified; F17.210 Nicotine dependence, cigarettes, uncomplicated; Z79.899 Other long term (current) drug therapy; Z88.8 Allergy status to other drugs, medicaments and biological substances; Z91.19 Patient's noncompliance with other medical treatment and regimen
CPT/HCPCS: 0202U; 31500; 36415; 36569; 36600; 51702; 71045; 76700; 80048; 80053; 80069; 80202; 81001; 82140; 82550; 82553; 82803; 82947; 83605; 83690; 83735; 83880; 84100; 84145; 84443; 84484; 85025; 85520; 85610; 87040; 87070; 87205; 87493; 92526; 92610; 93005; 93010; 93306; 94002; 94003; 94640; 94644; 94660; 96365; 96367; 96368; 96375; 96376; 97110; 97163; 97166; 97530; 99285-25; A9270; C1751; C9113; J0295; J0360; J0456; J0696; J1630; J1644; J1650; J1940; J2060; J2250; J2543; J2704; J2920; J2930; J3010; J3370; J3411; J3475; J3480; J7030; J7042; J7050; J7060; J7070; J7120; J7512

== ENCOUNTER 2022-01-30 13:20 | Inpatient (IN) | payer OTHER ==
[~2022-01-30] VITALS: Ht 172.7 cm; Wt 83.0 kg
[~2022-01-30 13:20] MED LIST: ALBU90OI INH; AMLO5 PO; B-1100 M1 PO; FOLI1 PO; LISI20 PO; LOSA50 PO; MECL25 PO; MELA3 PO; MULTIPLE VITAM1 EACH PO; Nicoderm Cq1 EAC1 TOP; Seroquel Xr50 MG PO; VISBIOME 112.51 EACH PO
[2022-01-30 14:19] LABS: BASOPHILS ABSOLUTE AUTO 0.04 K/mm3 (0.00-0.23); BASOPHILS PERCENT AUTO 0 % (0-2); EOSINOPHILS ABSOLUTE AUTO 0.07 K/mm3 (0.00-0.68); EOSINOPHILS PERCENT AUTO 1 % (0-6); Hematocrit 43.8 % (37.0-53.0); Hemoglobin 14.7 g/dL (13.5-17.5); IMMATURE GRAN ABSOLUTE AUTO 0.13 K/mm3 (0.00-0.10); IMMATURE GRAN PERCENT AUTO 1 % (0-1); LYMPHOCYTES ABSOLUTE AUTO 2.67 K/mm3 (0.84-5.20); LYMPHOCYTES PERCENT AUTO 20 % (21-46); MONOCYTES ABSOLUTE AUTO 1.42 K/mm3 (0.16-1.47); MONOCYTES PERCENT AUTO 11 % (4-13); Mean Corpuscular HGB 31.8 pg (26.0-34.0); Mean Corpuscular HGB Conc 33.6 g/dL (31.5-36.5); Mean Corpuscular Volume 95 fL (80-100); Mean Platelet Volume 10.8 fL (9.1-12.4); NEUTROPHILS ABSOLUTE AUTO 9.09 K/mm3 (1.96-9.15); NEUTROPHILS PERCENT AUTO 68 % (41-73); Platelet Count 198 K/mm3 (150-400); RDW Coefficient Variation 15.7 % (11.7-14.2); RDW Standard Deviation 52.2 fL (35.1-46.3); Red Blood Cell Count 4.62 M/mm3 (4.30-5.90); White Blood Cell Count 13.42 K/mm3 (4.00-11.30)
[2022-01-30 14:33] LABS: Alanine Aminotransfer (ALT/SGP 22 U/L (12-78); Albumin, Blood 2.9 g/dL (3.4-5.0); Albumin/Globulin Ratio 0.6 (0.8-1.8); Alk Phos 116 U/L (50-136); Anion Gap 8 mmol/L (6-16); Aspartate Aminotrans (AST/SGOT 10 U/L (12-37); Bilirubin, Total 0.3 mg/dL (0.1-1.0); Blood Urea Nitrogen 6 mg/dL (8-24); Bun/Creatinine Ratio 8.5 (12.0-20.0); CO2, Blood 22 mmol/L (21-32); Calcium, Blood 9.4 mg/dL (8.5-10.1); Chloride, Blood 111 mmol/L (98-108); Globulin, Blood 4.7 g/dL (2.2-4.0); Glomerular Filtration Rate >60 (60-); Glucose, Blood 102 mg/dL (70-99); Potassium, Blood 3.2 mmol/L (3.5-5.5); Sodium, Blood 141 mmol/L (136-145); Total Protein, Blood 7.6 g/dL (6.4-8.2)
[2022-01-30 17:33] LABS: Anti-Xa UFH, PHA Monitoring <0.10 IU/mL; International Normalized Ratio 1.07; Prothrombin Time Results 11.2 Sec (9.7-11.5)
[2022-01-31 01:11] LABS: BASOPHILS ABSOLUTE AUTO 0.05 K/mm3 (0.00-0.23); BASOPHILS PERCENT AUTO 0 % (0-2); EOSINOPHILS ABSOLUTE AUTO 0.06 K/mm3 (0.00-0.68); EOSINOPHILS PERCENT AUTO 1 % (0-6); Hematocrit 38.2 % (37.0-53.0); Hemoglobin 12.7 g/dL (13.5-17.5); IMMATURE GRAN ABSOLUTE AUTO 0.09 K/mm3 (0.00-0.10); IMMATURE GRAN PERCENT AUTO 1 % (0-1); LYMPHOCYTES ABSOLUTE AUTO 2.31 K/mm3 (0.84-5.20); LYMPHOCYTES PERCENT AUTO 18 % (21-46); MONOCYTES PERCENT AUTO 10 % (4-13); Mean Corpuscular HGB 31.8 pg (26.0-34.0); Mean Corpuscular HGB Conc 33.2 g/dL (31.5-36.5); Mean Corpuscular Volume 96 fL (80-100); Mean Platelet Volume 10.9 fL (9.1-12.4); NEUTROPHILS ABSOLUTE AUTO 9.35 K/mm3 (1.96-9.15); NEUTROPHILS PERCENT AUTO 71 % (41-73); Platelet Count 171 K/mm3 (150-400); RDW Coefficient Variation 15.8 % (11.7-14.2); White Blood Cell Count 13.16 K/mm3 (4.00-11.30)
[2022-01-31 01:29] LABS: Alanine Aminotransfer (ALT/SGP 18 U/L (12-78); Albumin, Blood 2.5 g/dL (3.4-5.0); Albumin/Globulin Ratio 0.6 (0.8-1.8); Alk Phos 106 U/L (50-136); Anion Gap 8 mmol/L (6-16); Aspartate Aminotrans (AST/SGOT 11 U/L (12-37); Bilirubin, Total 0.6 mg/dL (0.1-1.0); Blood Urea Nitrogen 9 mg/dL (8-24); Bun/Creatinine Ratio 13.3 (12.0-20.0); CO2, Blood 22 mmol/L (21-32); Calcium, Blood 8.7 mg/dL (8.5-10.1); Chloride, Blood 112 mmol/L (98-108); Creatinine, Blood 0.68 mg/dL (0.60-1.20); Globulin, Blood 4.1 g/dL (2.2-4.0); Glomerular Filtration Rate >60 (60-); Glucose, Blood 111 mg/dL (70-99); Potassium, Blood 3.7 mmol/L (3.5-5.5); Sodium, Blood 142 mmol/L (136-145); Total Protein, Blood 6.6 g/dL (6.4-8.2)
[2022-01-31 01:33] LABS: U Buprenorphine Screen Not Detected; U Cannabinoids Screen Not Detected; U Opiates Screen DETECTED; U Oxycodone Screen DETECTED; U Phencyclidine Screen Not Detected; U Propoxyphene Screen Not Detected
[2022-01-31 01:34] LABS: U Amphetamine Screen Not Detected; U Barbituate Screen Not Detected; U Benzodiazapine Screen Not Detected; U Cocaine Screen Not Detected; U Methadone Screen Not Detected; U Methamphetamine Screen Not Detected
--- NOTE | 2022-01-31 05:51 | NUR ---
SHIFT SUMMARY ASSUMED CARE OF PT AT 1900. PT IS A/OX4. HEART SOUNDS REGULAR, LUNG SOUNDS HAVE COARSE LUNG SOUNDS AT THE BASES. PT AWOKE DURING THE NIGHT AND WAS SOB WHILE USING THE URINAL. SATURATIONS WERE AT 90%, O2 GIVEN FOR SUPPORT AND PT JUMPED TO 98%. CHEST PAIN TRIGGERED WITH ACTIVITY. PT REMAINED IN BED MOST OF THE NIGHT. HEPRIN INFUSING.
--- NOTE | 2022-01-31 17:53 | NUR ---
PT SWITCHED FROM HEPARIN INFUSION TO PO XARELTO TODAY. PT CONTINUES TO REQUIRE 2L SUPPLEMENTAL 02, SPO2 85% ON RA AT REST. PT ABLE TO AMBULATE IN ROOM, REPOSITION HIMSELF IN BED AND USE THE CALL LIGHT APPROPRIATELY. PT MEDICATED PER ORDERS FOR CHEST PAIN ASSOCIATED WITH PE, NOTED TO BE LESS PAINFUL OVER THE COURSE OF TODAY. NO ACUTE EVENTS T/O SHIFT. WILL CONTINUE TO MONITOR AND GIVE REPORT TO ONCOMING SHIFT RN.
--- NOTE | 2022-01-31 20:44 | NUR ---
ASSUMED CARE OF PATIENT AT APPROXIMATELY 1900 FROM ARIE Grullon RN. PATIENT ALERT AND ORIENTED X4; REPORTS PAIN IN RIGHT AND LEFT OF CHEST THAT HAS BEEN OCCURING FOR DAYS; REPORTS TOLERABLE AT THIS TIME. PATIENT DENIES NUMBNESS, TINGLING, DIZZINESS OR NAUSEA. ST ON TELE; OXYGEN SATURATION ABOVE 90% ON 2LPM VIA NC. PIV S/L. SBA OUT OF BED.
[2022-02-01 04:43] LABS: BASOPHILS ABSOLUTE AUTO 0.03 K/mm3 (0.00-0.23); BASOPHILS PERCENT AUTO 0 % (0-2); EOSINOPHILS ABSOLUTE AUTO 0.16 K/mm3 (0.00-0.68); EOSINOPHILS PERCENT AUTO 2 % (0-6); Hematocrit 34.9 % (37.0-53.0); Hemoglobin 11.4 g/dL (13.5-17.5); IMMATURE GRAN ABSOLUTE AUTO 0.08 K/mm3 (0.00-0.10); IMMATURE GRAN PERCENT AUTO 1 % (0-1); LYMPHOCYTES ABSOLUTE AUTO 1.57 K/mm3 (0.84-5.20); LYMPHOCYTES PERCENT AUTO 14 % (21-46); MONOCYTES ABSOLUTE AUTO 1.09 K/mm3 (0.16-1.47); MONOCYTES PERCENT AUTO 10 % (4-13); Mean Corpuscular HGB 31.8 pg (26.0-34.0); Mean Corpuscular HGB Conc 32.7 g/dL (31.5-36.5); Mean Corpuscular Volume 97 fL (80-100); Mean Platelet Volume 11.1 fL (9.1-12.4); NEUTROPHILS ABSOLUTE AUTO 8.02 K/mm3 (1.96-9.15); NEUTROPHILS PERCENT AUTO 73 % (41-73); Platelet Count 160 K/mm3 (150-400); RDW Coefficient Variation 15.7 % (11.7-14.2); RDW Standard Deviation 54.4 fL (35.1-46.3); Red Blood Cell Count 3.59 M/mm3 (4.30-5.90); White Blood Cell Count 10.95 K/mm3 (4.00-11.30)
[2022-02-01 05:00] LABS: Anion Gap 7 mmol/L (6-16); Blood Urea Nitrogen 9 mg/dL (8-24); Bun/Creatinine Ratio 14.8 (12.0-20.0); CO2, Blood 23 mmol/L (21-32); Chloride, Blood 108 mmol/L (98-108); Creatinine, Blood 0.61 mg/dL (0.60-1.20); Glomerular Filtration Rate >60 (60-); Glucose, Blood 105 mg/dL (70-99); Potassium, Blood 3.8 mmol/L (3.5-5.5); Sodium, Blood 138 mmol/L (136-145)
--- NOTE | 2022-02-01 06:11 | NUR ---
PATIENT WAS INCONTINENT OF STOOL X1 AND URINATED ON FLOOR X1; USED URINAL BEDSIDE MOST OF NIGHT. PATIENT IMPULSIVE; RUSHED INTO BATHROOM WITHOUT OXYGEN BUT DID NOT HAVE A BM. OXYGEN SATURATION AT 83% AFTER RETURNING TO BED; PLACED ON 1LPM VIA NC AND RECOVRED QUICKLY. NO OTHER ACUTE CHANGES TO REPORT. PATIENT SLEPT ABOUT SEVEN HOURS LAST NIGHT.
--- NOTE | 2022-02-01 06:51 | NUR ---
PCT NOTIFIED THIS RN OF BLOOD NOTED IN PATIENTS URINE. PATIENT HAD VOIDED INTO URINAL AND WHEN IT WAS DUMPED INTO THE TOILET A SMALL BRIGHT RED BLOOD NOTED.
--- NOTE | 2022-02-01 09:47 | NUR ---
MODERATE AMOUNT OF JÚNIOR RED BLOOD NOTED IN PT'S URINE, ALSO JÚNIOR RED BLOOD NOTED AT HIS URETHRAL OPENING. PT DENIES PAIN, NO OBVIOUS INJURY NOTED, TO MY KNOWLEDGE, PT HAS NOT HAD A CUETO CATHETER OR ANY OTHER CAUSE FOR BLEEDING. DR BENITEZ NOTIFIED AND STATES HE WILL COME SEE THE PT. NO NEW ORDERS AT THIS TIME.
[2022-02-01 14:29] LABS: Hematocrit 38.2 % (37.0-53.0); Hemoglobin 12.4 g/dL (13.5-17.5)
--- NOTE | 2022-02-01 17:33 | NUR ---
ASSUMED CARE OF PT AT 0700. PT HAD EPISODE OF HEMATURIA NOTED EARLIER, NO FURTHER EPISODES THIS SHIFT. DOAC DISCONTINUED AND HEPARIN GTT IS TO RESTART AT 2000 PER PHARMACY, WILL PASS THIS INFO TO ONCOMING SHIFT RN. NO OTHER ACUTE EVENTS THIS SHIFT. VSS. PT IS NOW MEDICAL STATUS WITHOUT TELEMETRY. PT IS ABLE TO AMBULATE IN ROOM WITH STANDBY ASSIST, DOES REQUIRE 02 RA SATURATION WITH ACTIVITY WAS NOTED TO BE 76%. DR BENITEZ AWARE. WILL CONTINUE TO MONITOR AND REPORT TO ONCOMING SHIFT RN.
--- NOTE | 2022-02-01 21:27 | NUR ---
ASSUMED CARE OF PATIENT AT APPROXIMATELY 1900 FROM ARIE Grullon RN. PATIENT ALERT AND ORIENTED X4; FORGETFUL AT NIGHT. PATIENT DENIES PAIN BUT REPORTS HE HAS PAIN IN CHEST WHEN HE AMBULATES DUE TO PE OCCURING FOR DAYS; REPORTS. PATIENT DENIES NUMBNESS, TINGLING, DIZZINESS OR NAUSEA. MEDICAL NO TELE STATUS; OXYGEN SATURATION ABOVE 90% ON 1LPM VIA NC. HEPARIN GTT STARTED AT 2000 PER ORDER. SBA OUT OF BED.
[2022-02-02 02:14] LABS: BASOPHILS ABSOLUTE AUTO 0.03 K/mm3 (0.00-0.23); BASOPHILS PERCENT AUTO 0 % (0-2); EOSINOPHILS ABSOLUTE AUTO 0.17 K/mm3 (0.00-0.68); EOSINOPHILS PERCENT AUTO 2 % (0-6); Hematocrit 34.9 % (37.0-53.0); Hemoglobin 11.5 g/dL (13.5-17.5); IMMATURE GRAN ABSOLUTE AUTO 0.09 K/mm3 (0.00-0.10); IMMATURE GRAN PERCENT AUTO 1 % (0-1); LYMPHOCYTES PERCENT AUTO 16 % (21-46); MONOCYTES ABSOLUTE AUTO 0.98 K/mm3 (0.16-1.47); MONOCYTES PERCENT AUTO 10 % (4-13); Mean Corpuscular HGB 31.9 pg (26.0-34.0); Mean Corpuscular Volume 97 fL (80-100); Mean Platelet Volume 10.8 fL (9.1-12.4); NEUTROPHILS ABSOLUTE AUTO 7.23 K/mm3 (1.96-9.15); NEUTROPHILS PERCENT AUTO 72 % (41-73); Platelet Count 182 K/mm3 (150-400); RDW Coefficient Variation 15.3 % (11.7-14.2); RDW Standard Deviation 54.4 fL (35.1-46.3); Red Blood Cell Count 3.61 M/mm3 (4.30-5.90)
--- NOTE | 2022-02-02 05:56 | NUR ---
NO ACUTE CHANGES. URINE CLEAR WITHOUT BLOOD. PATIENT SLEPT ABOUT EIGHT HOURS LAST NIGHT. HEPARIN INCREASED ONCE PER ORDER. NO OTHER CHANGES TO REPORT.
[2022-02-02] MEDS ORDERED: ELIQUIS5 MG PO (12:47)
[2022-02-02] MEDS ORDERED: ELIQUIS5 M2 PO (12:48)
--- NOTE | 2022-02-02 16:06 | NUR ---
DISCHARGE UPDATE DISCHARGE PACKET GONE OVER WITH PT AND AT 1555. PT LEFT UNIT AT 1603 VIA WHEELCHAIR AND ON RA. O2 TANK IN PT LAP, PT STATED "I WILL PUT IT ON IF I NEED IT." DISCHARGE PACKET WITH PT DURING DISCHARGE.
== END 2022-02-02 16:09 | disposition home or self-care (01) | DRG 176 ==
LOC: ER 13:20 → PCU 19:48
PROVIDERS: Family Medicine; Hospitalist; Physician Assistant; ADMIT Internal Medicine
DX: I26.92 Saddle embolus of pulmonary artery without acute cor pulmonale (principal); I10 Essential (primary) hypertension; F17.210 Nicotine dependence, cigarettes, uncomplicated; J44.9 Chronic obstructive pulmonary disease, unspecified; E87.6 Hypokalemia; R91.8 Other nonspecific abnormal finding of lung field; R25.1 Tremor, unspecified; I51.89 Other ill-defined heart diseases; F10.10 Alcohol abuse, uncomplicated; D72.829 Elevated white blood cell count, unspecified; R31.0 Gross hematuria; Z79.899 Other long term (current) drug therapy
CPT/HCPCS: 36415; 71046; 71260; 74178; 80048; 80053; 83690; 83880; 84484; 85014; 85018; 85025; 85520; 85610; 85730; 93005; 93010; 94762; 96365; 96375; 96376; 99285-25; A9270; J1170; J1644; J2270; Q9967

== ENCOUNTER 2023-10-08 15:14 | Emergency (ER) | payer OTHER ==
[~2023-10-08] VITALS: Ht 172.7 cm; Wt 77.1 kg
[~2023-10-08 15:14] MED LIST changes: +ELIQUIS5 M2 PO; +ELIQUIS5 MG PO
[2023-10-08 15:38] VITALS: BP 96/69
[2023-10-08 16:21] LABS: International Normalized Ratio 1.01; Prothrombin Time Results 10.6 Sec (9.7-11.5)
== END 2023-10-08 17:06 | disposition home or self-care (01) ==
LOC: ER 15:14
PROVIDERS: Emergency Medicine
DX: S09.90XA Unspecified injury of head, initial encounter (principal); S60.412A Abrasion of right middle finger, initial encounter; F10.10 Alcohol abuse, uncomplicated; F17.210 Nicotine dependence, cigarettes, uncomplicated; W01.0XXA Fall on same level from slipping, tripping and stumbling without subsequent striking against object, initial encounter; Z79.02 Long term (current) use of antithrombotics/antiplatelets; Z86.711 Personal history of pulmonary embolism
CPT/HCPCS: 70450; 85610; 93005; 93010; 99284-25

== ENCOUNTER 2023-11-26 20:09 | Emergency (ER) | payer OTHER ==
[~2023-11-26] VITALS: Ht 172.7 cm; Wt 77.1 kg
[2023-11-26 20:41] LABS: BASOPHILS ABSOLUTE AUTO 0.04 K/mm3 (0.00-0.23); BASOPHILS PERCENT AUTO 1 % (0-2); EOSINOPHILS ABSOLUTE AUTO 0.06 K/mm3 (0.00-0.68); EOSINOPHILS PERCENT AUTO 1 % (0-6); Hemoglobin 10.5 g/dL (13.5-17.5); IMMATURE GRAN ABSOLUTE AUTO 0.04 K/mm3 (0.00-0.10); IMMATURE GRAN PERCENT AUTO 1 % (0-1); LYMPHOCYTES ABSOLUTE AUTO 1.68 K/mm3 (0.84-5.20); LYMPHOCYTES PERCENT AUTO 22 % (21-46); MONOCYTES ABSOLUTE AUTO 0.63 K/mm3 (0.16-1.47); MONOCYTES PERCENT AUTO 8 % (4-13); Mean Corpuscular HGB 30.3 pg (26.0-34.0); Mean Corpuscular HGB Conc 31.8 g/dL (31.5-36.5); Mean Corpuscular Volume 95 fL (80-100); Mean Platelet Volume 10.9 fL (9.1-12.4); NEUTROPHILS ABSOLUTE AUTO 5.36 K/mm3 (1.96-9.15); NEUTROPHILS PERCENT AUTO 69 % (41-73); Platelet Count 200 K/mm3 (150-400); RDW Coefficient Variation 16.2 % (11.7-14.2); RDW Standard Deviation 56.3 fL (35.1-46.3); Red Blood Cell Count 3.47 M/mm3 (4.30-5.90); White Blood Cell Count 7.81 K/mm3 (4.00-11.30)
[2023-11-26 21:08] LABS: Albumin, Blood 3.1 g/dL (3.4-5.0); Albumin/Globulin Ratio 0.9 (0.8-1.8); Bilirubin, Total 0.3 mg/dL (0.1-1.0); Bun/Creatinine Ratio 12.8 (12.0-20.0); Calcium, Blood 8.6 mg/dL (8.5-10.1); Creatinine, Blood 1.09 mg/dL (0.60-1.20); Globulin, Blood 3.6 g/dL (2.2-4.0); Potassium, Blood 4.2 mmol/L (3.5-5.5); Total Protein, Blood 6.7 g/dL (6.4-8.2)
[2023-11-27 02:30] VITALS: BP 124/81
== END 2023-11-27 02:38 | disposition home or self-care (01) ==
LOC: ER 20:09
PROVIDERS: Emergency Medicine
DX: E86.0 Dehydration (principal); R55 Syncope and collapse; D64.9 Anemia, unspecified; I10 Essential (primary) hypertension; F17.210 Nicotine dependence, cigarettes, uncomplicated; Z79.899 Other long term (current) drug therapy; Z79.01 Long term (current) use of anticoagulants
CPT/HCPCS: 71046; 80053; 84484; 85025; 93005; 93010; 96360; 99285-25; J7030

== ENCOUNTER 2024-05-19 18:30 | Emergency (ER) | payer OTHER ==
[~2024-05-19] VITALS: Ht 177.8 cm; Wt 72.6 kg
[~2024-05-19 18:30] MED LIST changes: +LOSARTAN POTASS25 M2 PO; +METOPROLOL SUCC25 MG PO
[2024-05-19] MEDS ORDERED: EPINEPhrine HCl 0.1 MG/ML 10ML SYR IV ONE (19:57)
== END 2024-05-19 22:04 ==
LOC: ER 18:30
DX: I46.9 Cardiac arrest, cause unspecified (principal); Z79.899 Other long term (current) drug therapy; I10 Essential (primary) hypertension; J44.9 Chronic obstructive pulmonary disease, unspecified; F17.210 Nicotine dependence, cigarettes, uncomplicated
CPT/HCPCS: 92950; 92953; 96374-59; 99285-25